=== PATIENT | male | born 1960 | race Asian ===

== ENCOUNTER 2017-03-28 08:56 | Emergency (ER) | payer BC ==
[2017-03-28 09:01] VITALS: BP 129/87; PULSE 75; TEMP 98; BMI 22.4
--- NOTE | 2017-03-28 09:51 | PDOC ---
History of Present Illness - General Chief Complaint: Pain Stated Complaint: RT KNEE PAIN Time Seen by Provider: 03/28/17 09:15 History Source: Patient Exam Limitations: No Limitations - History of Present Illness Initial Comments: 03/28/17 09:38 CHIEF COMPLAINT: Right knee pain for one year HISTORY OF PRESENT ILLNESS: Patient is a 57-year-old male, presented to [facility] department for evaluation of right knee pain states that recently knee has been getting more swollen has been having pain for over one year has not seen an orthopedist. Patient walking with a limp there is noted edema to right medial knee. No erythema, no warmth. No calf pain. REVIEW OF SYSTEMS: GENERAL: Afebrile, A&O x3 RESPIRATORY: No cough, wheezing, or hemoptysis. CARDIAC: No CP or SOB MUSCULOSKELETAL: Pain to right knee generalized SKIN : No erythema, edema to right medial knee, no bruising, no deformity. NEUROLOGICAL: Denies any numbness or tingling. PHYSICAL EXAM: GENERAL: The patient is awake, alert, and fully oriented, in no acute distress. RESPIRATORY: Lungs clear bilaterally no rhonchi, rales, or wheezes CARDIAC: S1-S2 audible, no murmur rub or gallop EXTREMITIES: Decreased range of motion to right knee related to pain, fluid appreciated to right medial knee suprapatellar bursa, no bulge sign. No pain to superior or inferior patella. Negative drop test. Negative posterior leg test. No joint laxity noted, no ecchymosis, no deformity, no abrasions ,no edema. + 3 popliteal pulse. Negative Homans sign. No calf pain or tenderness, no erythema or warmth there is edema to right medial knee. MUSCULOSKELETAL: No spinal point tenderness. SKIN: Warm, Dry, normal turgor, no erythema, no bruising or deformity. Past History - Past Medical History Allergies/Adverse Reactions: Allergies Allergy/AdvReac Type Severity Reaction Status Date / Time shellfish derived Allergy Verified 03/28/17 09:01 Home Medications: Ambulatory Orders Fioricet - 1 tab PO DAILY PRN 02/27/17 Ibuprofen [Motrin -] 400 mg PO QID #28 tablet 03/28/17 Oxycodone HCl/Acetaminophen [Percocet 5-325 mg Tablet] 1 tab PO Q6H #12 tablet MDD 4 07/25/17 - Psycho/Social/Smoking Cessation Hx Suicidal Ideation: No Smoking History: Never smoked Information on smoking cessation initiated: No Hx Alcohol Use: No Drug/Substance Use Hx: No Substance Use Type: None *Physical Exam - Vital Signs Last Vital Signs Temp Pulse Resp BP Pulse Ox 98 F 75 18 129/87 99 03/28/17 08:57 03/28/17 08:57 03/28/17 08:57 03/28/17 08:57 03/28/17 08:57 ED Treatment Course - RADIOLOGY Radiology Studies Ordered: Category Date Time Status KNEE 3 POS-RIGHT [RAD] Stat Radiology 03/28/17 09:20 Ordered Medical Decision Making - Medical Decision Making 03/28/17 09:57 A/P: Patient with right knee pain for one year, sent for x-ray to rule out acute injury patient denies any trauma to area. States that he has been having pain for a year and been progressively getting worse. X-ray demonstrated DJD. With mild fullness of the suprapatellar bursa suggesting effusion. Knee immobilizer placed on. Patient to follow-up with orthopedics. Medication for pain given to patient. *DC/Admit/Observation/Transfer Diagnosis at time of Disposition: Knee effusion, right DJD (degenerative joint disease) Qualifiers: Osteoarthritis location: knee Osteoarthritis type: unspecified Laterality: right Qualified Code(s): M17.11 - Unilateral primary osteoarthritis, right knee - Discharge Dispostion Admit: No - Prescriptions Prescriptions: Ibuprofen [Motrin -] 400 mg PO QID #28 tablet Oxycodone HCl/Acetaminophen [Percocet 5-325 mg Tablet] 1 tab PO Q6H #12 tablet MDD 4 - Referrals Referrals: Braydon Tuttle MD [Staff Physician] - - Patient Instructions Printed Discharge Instructions: DI for Knee Effusion Additional Instructions: 1. Please return to the emergency department with any redness, swelling, increased pain, or any other concerns. 2. Keep splint on only when walking, please take off when driving or when sleeping 3. Please follow up in the office of Dr. Tuttle within a week if pain persists. 4. No weightbearing 5. Ice and elevate when at rest. 6. Motrin for pain during the day, Percocet only at night may cause drowsiness and dizziness, do not drive and take Percocet
== END 2017-03-28 10:04 | disposition home or self-care (01) ==
LOC: JERFT 08:56
PROC: 2W3LX1Z Immobilization of Right Lower Extremity using Splint (ICD-10-PCS; principal; 2017-03-28)
DX: M17.11 Unilateral primary osteoarthritis, right knee (principal); M25.461 Effusion, right knee
CPT/HCPCS: 73562-TC-RT; 99281-25

== ENCOUNTER 2023-03-21 12:56 | Emergency (ER) | payer OTHER ==
[2023-03-21 13:10] VITALS: BP 119/75; PULSE 81; RESP 16; TEMP 98.5; BMI 38.0
[2023-03-21 14:45] LABS: BASO % 1.2 % (0-2.0); EOS % 1.7 % (0-4.5); HEMATOCRIT 43.4 % (35.4-49); LYMPH % 10.3 % (8-40); MCH 26.8 pg (25.7-33.7); MCHC 32.1 g/dl (32.0-35.9); MEAN CELL VOLUME 83.3 fl (80-96); MEAN PLT VOLUME 7.6 fl (7.5-11.1); MONO % 11.3 % (3.8-10.2); NEUT % 75.5 % (42.8-82.8); PLATELET COUNT 229 10^3/uL (134-434); RBC 5.21 M/mm3 (4.00-5.60); RDW 14.1 % (11.9-15.9); WHITE BLOOD COUNT 11.1 K/mm3 (4.0-10.0)
[2023-03-21] MEDS ORDERED: ACETAMINOPHEN 1000 MG/100 ML BAG IVPB ONE (14:55)
[2023-03-21] MEDS ORDERED: ACETAMINOPHEN INJECTION 100 ML IVPB ONE (14:58)
[2023-03-21 15:06] LABS: POTASSIUM 3.7 mmol/L (3.5-5.1)
[2023-03-21 15:09] LABS: BLOOD UREA NITROGEN 17.4 mg/dL (7-18); CALCIUM 8.8 mg/dL (8.5-10.1)
[2023-03-21 15:14] LABS: BILIRUBIN,TOTAL 1.4 mg/dL (0.2-1); TOT PROT 7.1 g/dl (6.4-8.2)
[2023-03-21 15:15] LABS: ANISOCYTOSIS 3+; MACROCYTOSIS 0
== END 2023-03-21 16:32 | disposition home or self-care (01) ==
LOC: JER 12:56
PROC: 3E033NZ Introduction of Analgesics, Hypnotics, Sedatives into Peripheral Vein, Percutaneous Approach (ICD-10-PCS; principal; 2023-03-21)
DX: M79.671 Pain in right foot (principal); M10.9 Gout, unspecified
CPT/HCPCS: 36415; 73630-TC-RT-FY; 80053; 85025; 99284-25

== ENCOUNTER 2024-03-13 04:29 | Day surgery (SDC) | payer OTHER ==
[2024-03-11 13:18] VITALS: BMI 22.6
[2024-03-13] MEDS ORDERED: CYCLOPENTOLATE HCL 1% OPHTH SOLN 2 ML BOTTLE ONE (07:20)
[2024-03-13] MEDS ORDERED: KETOROLAC TROMETHAMINE 0.5% EYE DROP 1 DROP DROPS ONE (07:20)
[2024-03-13] MEDS ORDERED: OFLOXACIN 0.3% OPHTHALMIC SOLUTION 5 ML BOTTLE ONE (07:20)
[2024-03-13] MEDS ORDERED: TROPICAMIDE 1% OPHTH SOLN 15 ML BOTTLE ONE (07:20)
[2024-03-13] MEDS ORDERED: PHENYLEPHRINE 2.5% OPTHALMIC DROP 2ML BOTTLE ONE (07:20)
[2024-03-13] MEDS ORDERED: LIDOCAINE HCL/PF 1% SDV 5ML VIAL ONE (07:24)
[2024-03-13] MEDS ORDERED: TETRACAINE 0.5% OPHTH SOLN 2 ML BOTTLE ONE (07:24)
[2024-03-13] MEDS ORDERED: EPINEPHrine/PF 1 MG/1 ML (1:1,000) AMPULE ONE (07:24)
[2024-03-13] MEDS ORDERED: POVIDONE-IODINE 5% OPHTHALMIC PREP 30 ML SOLUTION ONE (07:25)
[2024-03-13] MEDS ORDERED: BSS (NA/CA/MG/K) BALANCED SALT SOLUTION OPHTH SOLN 15 ML BOTTLE ONE (07:25)
[2024-03-13] MEDS ORDERED: ACETAMINOPHEN 325 MG TABLET (FP) PO PRN (07:38)
[2024-03-13] MEDS: KETOROLAC TROMETHAMINE 0.5% EYE DROP 1 DROP DROPS OP SCH (07:40)
[2024-03-13] MEDS: CYCLOPENTOLATE HCL 1% OPHTH SOLN 2 ML BOTTLE OP SCH (07:40)
[2024-03-13] MEDS: PHENYLEPHRINE 2.5% OPHTH SOLN 15 ML BOTTLE OP SCH (07:40)
[2024-03-13] MEDS: TROPICAMIDE 1% OPHTH SOLN 15 ML BOTTLE OP SCH (07:40)
[2024-03-13] MEDS: OFLOXACIN 0.3% OPHTHALMIC SOLUTION 5 ML BOTTLE OP SCH (07:40)
[2024-03-13] MEDS ORDERED: MIDAZOLAM HCL 2 MG/2 ML SINGLE DOSE VIAL ONE (09:03)
[2024-03-13] MEDS: TETRACAINE 0.5% OPHTH SOLN 2 ML BOTTLE TP ONE (09:09)
[2024-03-13] MEDS: POVIDONE-IODINE 5% OPHTHALMIC PREP 30 ML SOLUTION OS ONE (09:10)
[2024-03-13] MEDS: BSS (NA/CA/MG/K) BALANCED SALT SOLUTION OPHTH SOLN 15 ML BOTTLE OS ONE (09:18)
[2024-03-13] MEDS: LIDOCAINE HCL 1% PRESERVATIVE FREE - 30ML VIAL IO ONE (09:19)
[2024-03-13] MEDS: CHONDROITIN SU A/HYALUR SOD 1 KIT IO ONE (09:19)
[2024-03-13] MEDS: EPINEPHrine/PF 1 MG/1 ML (1:1,000) AMPULE SQ ONE (09:23)
[2024-03-13 10:47] VITALS: BP 145/86; PULSE 68; RESP 18; TEMP 97.9
== END 2024-03-13 10:57 | disposition home or self-care (01) ==
LOC: JASU-SURG 04:29
PROVIDERS: ATTEND Ophthalmology
PROC: 08RK3JZ Replacement of Left Lens with Synthetic Substitute, Percutaneous Approach (ICD-10-PCS; principal; 2024-03-13 09:00)
DX: H26.9 Unspecified cataract (principal)
CPT/HCPCS: V2632

== ENCOUNTER 2024-03-27 05:07 | Day surgery (SDC) | payer OTHER ==
[2024-03-25 13:46] VITALS: BMI 22.6
[~2024-03-27 05:07] MED LIST: ACETAMINOPHEN 325 MG TABLET (FP) PO PRN
[2024-03-27] MEDS ORDERED: LIDOCAINE HCL/PF 1% SDV 5ML VIAL ONE (07:30)
[2024-03-27] MEDS ORDERED: TETRACAINE 0.5% OPHTH SOLN 2 ML BOTTLE ONE (07:30)
[2024-03-27] MEDS ORDERED: BSS (NA/CA/MG/K) BALANCED SALT SOLUTION OPHTH SOLN 15 ML BOTTLE ONE (07:30)
[2024-03-27] MEDS ORDERED: POVIDONE-IODINE 5% OPHTHALMIC PREP 30 ML SOLUTION ONE (07:30)
[2024-03-27] MEDS ORDERED: TROPICAMIDE 1% OPHTH SOLN 15 ML BOTTLE ONE (09:23)
[2024-03-27] MEDS ORDERED: PHENYLEPHRINE 2.5% OPTHALMIC DROP 2ML BOTTLE ONE (09:23)
[2024-03-27] MEDS ORDERED: CYCLOPENTOLATE HCL 1% OPHTH SOLN 2 ML BOTTLE ONE (09:23)
[2024-03-27] MEDS ORDERED: KETOROLAC TROMETHAMINE 0.5% EYE DROP 1 DROP DROPS ONE (09:23)
[2024-03-27] MEDS ORDERED: OFLOXACIN 0.3% OPHTHALMIC SOLUTION 5 ML BOTTLE ONE (09:23)
[2024-03-27 10:01] VITALS: RESP 18
[2024-03-27] MEDS: CYCLOPENTOLATE HCL 1% OPHTH SOLN 2 ML BOTTLE OP SCH (10:14)
[2024-03-27] MEDS: PHENYLEPHRINE 2.5% OPHTH SOLN 15 ML BOTTLE OP SCH (10:15)
[2024-03-27] MEDS: TROPICAMIDE 1% OPHTH SOLN 15 ML BOTTLE OP SCH (10:15)
[2024-03-27] MEDS: KETOROLAC TROMETHAMINE 0.5% EYE DROP 1 DROP DROPS OP SCH (10:15)
[2024-03-27] MEDS: OFLOXACIN 0.3% OPHTHALMIC SOLUTION 5 ML BOTTLE OP SCH (10:15)
[2024-03-27] MEDS ORDERED: MIDAZOLAM HCL 2 MG/2 ML SINGLE DOSE VIAL ONE (12:09)
[2024-03-27] MEDS: TETRACAINE 0.5% OPHTH SOLN 2 ML BOTTLE OD ONE (12:21)
[2024-03-27] MEDS: POVIDONE-IODINE 5% OPHTHALMIC PREP 30 ML SOLUTION OD ONE (12:22)
[2024-03-27] MEDS: BSS (NA/CA/MG/K) BALANCED SALT SOLUTION OPHTH SOLN 15 ML BOTTLE OD ONE (12:28)
[2024-03-27] MEDS: LIDOCAINE HCL 1% PRESERVATIVE FREE - 30ML VIAL IO ONE (12:29)
[2024-03-27] MEDS: CHONDROITIN SU A/HYALUR SOD 1 KIT IO ONE (12:30)
[2024-03-27] MEDS: EPINEPHrine 1:1,000 1,000 MCG/ML ML SQ ONE (12:34)
[2024-03-27 14:14] VITALS: BP 149/84; PULSE 64; TEMP 97.8
== END 2024-03-27 13:51 | disposition home or self-care (01) ==
LOC: JASU-SURG 05:07
PROVIDERS: ATTEND Ophthalmology
PROC: 08RJ3JZ Replacement of Right Lens with Synthetic Substitute, Percutaneous Approach (ICD-10-PCS; principal; 2024-03-27 12:00)
DX: H26.9 Unspecified cataract (principal)
CPT/HCPCS: V2632

== ENCOUNTER 2024-04-16 11:47 | Emergency (ER) | payer OTHER ==
[2024-04-16 12:27] VITALS: BP 144/80; PULSE 71; RESP 18; TEMP 98.3; BMI 22.6
[2024-04-16] MEDS ORDERED: DIPHTH,PERTUSS(ACELL),TET 0.5 ML DISP.SYRIN IM ONE (13:24)
[2024-04-16] MEDS: TETANUS AND DIPHTHERIA TOXOID 0.5 ML DISP.SYRIN IM ONE (13:27)
[2024-04-16] MEDS: DIPHTH,PERTUSS(ACELL),TET 0.5 ML DISP.SYRIN IM ONE (13:27)
== END 2024-04-16 14:24 | disposition home or self-care (01) ==
LOC: JERFT 11:47
PROC: 0HQKXZZ Repair Right Lower Leg Skin, External Approach (ICD-10-PCS; principal; 2024-04-16)
PROC: 3E0234Z Introduction of Serum, Toxoid and Vaccine into Muscle, Percutaneous Approach (ICD-10-PCS; 2024-04-16)
DX: S81.811A Laceration without foreign body, right lower leg, initial encounter (principal); W23.1XXA Caught, crushed, jammed, or pinched between stationary objects, initial encounter; Z23 Encounter for immunization
CPT/HCPCS: 90471; 90715; 99282-25

== ENCOUNTER 2024-04-30 09:55 | Emergency (ER) | payer OTHER ==
[2024-04-30 09:58] VITALS: BP 125/74; PULSE 90; RESP 18; TEMP 97.7; BMI 22.6
== END 2024-04-30 10:45 | disposition home or self-care (01) ==
LOC: JERFT 09:55
PROC: 0HQKXZZ Repair Right Lower Leg Skin, External Approach (ICD-10-PCS; principal; 2024-04-30)
DX: S81.811D Laceration without foreign body, right lower leg, subsequent encounter (principal); Z48.02 Encounter for removal of sutures; X58.XXXD Exposure to other specified factors, subsequent encounter
CPT/HCPCS: 99283-25

== ENCOUNTER 2024-08-13 16:47 | Emergency (ER) | payer OTHER ==
[2024-08-13 16:54] VITALS: RESP 16; BMI 21.9
[2024-08-13 18:32] LABS: BASO % 0.3 % (0-2.0); EOS % 1.1 % (0-4.5); HEMATOCRIT 43.9 % (35.4-49); HEMOGLOBIN 14.1 GM/dL (11.7-16.9); LYMPH % 7.5 % (8-40); MCH 27.8 pg (25.7-33.7); MCHC 32.2 g/dl (32.0-35.9); MEAN CELL VOLUME 86.4 fl (80-96); MEAN PLT VOLUME 7.3 fl (7.5-11.1); MONO % 9.4 % (3.8-10.2); NEUT % 81.7 % (42.8-82.8); PLATELET COUNT 236 10^3/uL (134-434); RBC 5.08 M/mm3 (4.00-5.60); RDW 13.3 % (11.9-15.9); WHITE BLOOD COUNT 13.1 K/mm3 (4.0-10.0)
[2024-08-13 18:45] LABS: INR 0.99 (0.83-1.09); PROTHROMBIN TIME (PATIENT) 11.4 SEC (9.7-13.0)
[2024-08-13 18:48] LABS: ACTIVATED PTT 30.5 SECONDS (25.2-36.5)
[2024-08-13 18:55] LABS: CALCIUM 8.9 mg/dL (8.5-10.1); POTASSIUM 3.4 mmol/L (3.5-5.1)
[2024-08-13 18:56] LABS: ALBUMIN 3.1 g/dl (3.4-5.0)
[2024-08-13 18:59] LABS: CREATININE 1.1 mg/dL (0.55-1.3)
[2024-08-13 19:02] LABS: BILIRUBIN,TOTAL 0.6 mg/dL (0.2-1); TOT PROT 7.6 g/dl (6.4-8.2)
[2024-08-13 22:24] VITALS: BP 149/95; PULSE 71
[2024-08-13 22:25] VITALS: TEMP 36.8
== END 2024-08-13 22:42 | disposition short-term general hospital (02) ==
LOC: JER 16:47
DX: L76.82 Other postprocedural complications of skin and subcutaneous tissue (principal); Z20.822 Contact with and (suspected) exposure to COVID-19
CPT/HCPCS: 0241U-QW; 36415; 73140-TC-LT-FY; 80053; 85025; 85610; 85651; 85730; 86140; 86850; 86900; 86901; 99285-25

== ENCOUNTER 2025-01-07 18:28 | Inpatient (IN) | payer OTHER ==
[2025-01-07 20:38] LABS: HEMOGLOBIN 12.4 g/dL (13.7-17.5); MEAN PLT VOLUME 10.6 fl (9.4-12.4)
[2025-01-07 20:40] LABS: ABSOLUTE IMMATURE GRANULOCYTES 0.46 x10^3/uL (0.0-0.031); BASOPHILS # 0.03 x10^3/uL (0.01-0.08); HEMATOCRIT 38.1 % (40.1-51.0); MCHC 32.5 g/dl (32.3-36.5); MEAN CELL VOLUME 83.2 fl (79.0-92.2); MONOCYTE # 1.41 x10^3/uL (0.30-0.82); MONOCYTE % 7.5 % (5.3-12.2); PLATELET COUNT 128 x10^3/uL (163-337); RDW 13.8 % (12.2-16.4)
[2025-01-07 20:48] LABS: INR 1.14 (0.83-1.09); PROTHROMBIN TIME (PATIENT) 12.5 SEC (9.7-13.0)
[2025-01-07 20:50] LABS: ACTIVATED PTT 24.3 SECONDS (25.2-36.5)
[2025-01-07 20:56] LABS: POTASSIUM 4.3 mmol/L (3.5-5.1)
[2025-01-07 20:58] LABS: CALCIUM 8.5 mg/dL (8.5-10.1)
[2025-01-07 20:59] LABS: ALBUMIN 2.7 g/dl (3.4-5.0); BLOOD UREA NITROGEN 41.6 mg/dL (7-18)
[2025-01-07 21:02] LABS: CREATININE 1.3 mg/dL (0.55-1.3)
[2025-01-07 21:04] LABS: BILIRUBIN,TOTAL 0.8 mg/dL (0.2-1); TOT PROT 5.7 g/dl (6.4-8.2)
[2025-01-07 21:07] LABS: N-TERMINAL BNP 354.6 pg/ml (5-125)
[2025-01-07] MEDS ORDERED: CEFAZOLIN 1 GM/D5W 1 GM/50 ML BAG ONE ×2 (21:50→21:59)
[2025-01-07] MEDS ORDERED: FUROSEMIDE 40 MG/4 ML INJECTABLE VIAL ONE (21:51)
[2025-01-07] MEDS: FUROSEMIDE 40 MG/4 ML INJECTABLE VIAL IVPUSH ONE (21:55)
[2025-01-07] MEDS: CEFAZOLIN 1 GM in DEXTROSE 5%-WATER - 50 ML IVPB ONE ×2 (21:55→21:58)
[2025-01-07 21:59] LABS: URINE APPEARANCE CLEAR; URINE BILIRUBIN NEGATIVE (NEGATIVE); URINE COLOR YELLOW; URINE GLUCOSE (UA) NEGATIVE (NEGATIVE); URINE KETONE NEGATIVE (NEGATIVE); URINE LEUK ESTERASE NEGATIVE (NEGATIVE); URINE NITRITE NEGATIVE (NEGATIVE); URINE PROTEIN NEGATIVE (NEGATIVE); URINE UROBILINOGEN 0.2 mg/dL (0.2-1.0)
[2025-01-08 02:09] VITALS: BMI 23.7
[2025-01-08] MEDS: INSULIN ASPART SLIDING SCALE (NOVOLOG) 1 VIAL SQ SCH (06:00)
[2025-01-08 06:32] LABS: ABSOLUTE IMMATURE GRANULOCYTES 0.44 x10^3/uL (0.0-0.031); BASOPHILS # 0.05 x10^3/uL (0.01-0.08); MONOCYTE % 7.9 % (5.3-12.2)
[2025-01-08 06:34] LABS: EOSINOPHIL % 0.1 % (0.8-7.0); EOSINOPHILS # 0.01 x10^3/uL (0.04-0.54); HEMATOCRIT 41.4 % (40.1-51.0); HEMOGLOBIN 13.4 g/dL (13.7-17.5); MCHC 32.4 g/dl (32.3-36.5); MEAN CELL VOLUME 83.3 fl (79.0-92.2); MEAN PLT VOLUME 10.9 fl (9.4-12.4); MONOCYTE # 1.36 x10^3/uL (0.30-0.82); PLATELET COUNT 121 x10^3/uL (163-337); RDW 13.9 % (12.2-16.4)
[2025-01-08 06:57] LABS: POTASSIUM 3.9 mmol/L (3.5-5.1)
[2025-01-08 06:58] LABS: CALCIUM 8.7 mg/dL (8.5-10.1)
[2025-01-08 06:59] LABS: BLOOD UREA NITROGEN 40.9 mg/dL (7-18)
[2025-01-08 07:02] LABS: CREATININE 1.1 mg/dL (0.55-1.3)
[2025-01-08] MEDS: FUROSEMIDE 40 MG/4 ML INJECTABLE VIAL IVPUSH SCH (09:12)
[2025-01-08] MEDS: CEFAZOLIN 1 GM in DEXTROSE 5%-WATER - 50 ML IVPB SCH (09:12)
[2025-01-08] MEDS: ATORVASTATIN CA 10 MG TABLET (FP) PO SCH (21:09)
[2025-01-09 06:58] LABS: ABSOLUTE IMMATURE GRANULOCYTES 0.68 x10^3/uL (0.0-0.031); BASOPHILS # 0.08 x10^3/uL (0.01-0.08); EOSINOPHIL % 0.4 % (0.8-7.0); EOSINOPHILS # 0.06 x10^3/uL (0.04-0.54); HEMATOCRIT 40.9 % (40.1-51.0); HEMOGLOBIN 13.4 g/dL (13.7-17.5); MCHC 32.8 g/dl (32.3-36.5); MEAN CELL VOLUME 82.6 fl (79.0-92.2); MONOCYTE # 1.37 x10^3/uL (0.30-0.82); PLATELET COUNT 124 x10^3/uL (163-337); RDW 13.5 % (12.2-16.4)
[2025-01-09 07:25] LABS: CALCIUM 8.4 mg/dL (8.5-10.1)
[2025-01-09 07:26] LABS: ALBUMIN 2.5 g/dl (3.4-5.0)
[2025-01-09 07:29] LABS: CREATININE 1.2 mg/dL (0.55-1.3)
[2025-01-09 07:30] LABS: BILIRUBIN,TOTAL 0.8 mg/dL (0.2-1); TOT PROT 5.3 g/dl (6.4-8.2)
[2025-01-09] MEDS: ENOXAPARIN NA (PORCINE) 40 MG/0.4 ML DISP.SYRIN SQ SCH (09:08)
[2025-01-09] MEDS: METOPROLOL TARTRATE 25 MG TABLET (FP) PO SCH (21:49)
[2025-01-10 09:25] VITALS: BP 132/82; RESP 19
[2025-01-10 10:16] VITALS: PULSE 74; TEMP 97.4
[2025-01-10] MEDS: FUROSEMIDE 40 MG TABLET (FP) PO SCH (10:44)
== END 2025-01-10 12:30 | disposition home or self-care (01) | DRG 603 ==
LOC: JER 18:28 → JERBED 22:14 → J2W 01-08 00:39
PROVIDERS: ADMIT Internal Medicine; ATTEND Internal Medicine
DX: L03.115 Cellulitis of right lower limb (principal); E78.00 Pure hypercholesterolemia, unspecified; I10 Essential (primary) hypertension
CPT/HCPCS: 0241U-QW; 36415; 71045-TC-FY; 80048; 80053; 81003; 82533; 82962; 83036; 83880; 84484; 85025; 85610; 85730; 86200; 86431; 87040; 87081; 87086; 87522; 93005; 93010; 93306-TC; 93970-TC; 99285-25

== ENCOUNTER 2025-01-14 14:18 | Inpatient (IN) | payer OTHER ==
[2025-01-14 14:25] VITALS: BMI 23.3
[2025-01-14] MEDS ORDERED: VANCOMYCIN 1 GM PREMIX (F) 1,000 MG/200 ML BAG IVPB ONE (16:25)
[2025-01-14] MEDS ORDERED: PIPERACILLIN/TAZOB 4.5 GM 4.5 GM/100 ML BAG IVPB ONE (16:39)
[2025-01-14] MEDS: PIPERACILLIN/TAZOB 4.5 GM 4.5 GM in DEXTROSE 5%-WATER - 100 ML IVPB ONE (16:50)
[2025-01-14 17:15] LABS: HEMATOCRIT 43.4 % (40.1-51.0); HEMOGLOBIN 13.9 g/dL (13.7-17.5); MEAN CELL VOLUME 83.8 fl (79.0-92.2); PLATELET COUNT 155 x10^3/uL (163-337); RDW 13.2 % (12.2-16.4)
[2025-01-14 17:40] LABS: POTASSIUM 4.5 mmol/L (3.5-5.1)
[2025-01-14 17:42] LABS: CALCIUM 8.6 mg/dL (8.5-10.1)
[2025-01-14 17:43] LABS: ALBUMIN 2.8 g/dl (3.4-5.0); BLOOD UREA NITROGEN 22.9 mg/dL (7-18); MAGNESIUM 2.1 mg/dL (1.8-2.4)
[2025-01-14 17:46] LABS: CREATININE 1.6 mg/dL (0.55-1.3)
[2025-01-14 17:48] LABS: BILIRUBIN,TOTAL 1.7 mg/dL (0.2-1); TOT PROT 6.2 g/dl (6.4-8.2)
[2025-01-14 17:51] LABS: N-TERMINAL BNP 117.6 pg/ml (5-125)
[2025-01-14] MEDS: ACETAMINOPHEN 325 MG TABLET (FP) PO ONE (18:01)
[2025-01-14 18:05] LABS: INR 1.14 (0.83-1.09); PROTHROMBIN TIME (PATIENT) 12.4 SEC (9.7-13.0)
[2025-01-14 18:06] LABS: ACTIVATED PTT 31.6 SECONDS (25.2-36.5)
[2025-01-14] MEDS: VANCOMYCIN/WATER FOR INJ (PEG) 1,000 MG/200 ML BAG IVPB ONE (18:49)
[2025-01-14 19:47] LABS: ERYTHROCYTE SEDIMENTATION RATE 52 mm/hr (0-20)
[2025-01-15] MEDS: ACETAMINOPHEN 1000 MG/100 ML BAG IVPB ONE ×2 (06:39→22:21)
[2025-01-15] MEDS: PIPERACILLIN/TAZOB 4.5 GM 4.5 GM/100 ML BAG IVPB SCH (12:18)
[2025-01-15] MEDS: METOPROLOL TARTRATE 25 MG TABLET (FP) PO SCH (21:36)
[2025-01-15] MEDS: ATORVASTATIN CA 10 MG TABLET (FP) PO SCH (21:37)
[2025-01-15] MEDS: HEPARIN NA (PORCINE) 5,000 UNITS/ML 1ML VIAL SQ SCH (21:37)
[2025-01-16 09:04] LABS: ABSOLUTE IMMATURE GRANULOCYTES 0.45 x10^3/uL (0.0-0.031); BASOPHILS # 0.05 x10^3/uL (0.01-0.08); EOSINOPHIL % 2.9 % (0.8-7.0); EOSINOPHILS # 0.32 x10^3/uL (0.04-0.54); HEMATOCRIT 38.5 % (40.1-51.0); HEMOGLOBIN 12.2 g/dL (13.7-17.5); MCHC 31.7 g/dl (32.3-36.5); MEAN CELL VOLUME 84.2 fl (79.0-92.2); MEAN PLT VOLUME 10.9 fl (9.4-12.4); MONOCYTE # 1.18 x10^3/uL (0.30-0.82); MONOCYTE % 10.6 % (5.3-12.2); PLATELET COUNT 153 x10^3/uL (163-337)
[2025-01-16 09:23] LABS: POTASSIUM 3.5 mmol/L (3.5-5.1)
[2025-01-16 09:27] LABS: ALBUMIN 2.4 g/dl (3.4-5.0); CALCIUM 8.8 mg/dL (8.5-10.1)
[2025-01-16 09:28] LABS: BLOOD UREA NITROGEN 18.7 mg/dL (7-18)
[2025-01-16 09:33] LABS: CREATININE 1.7 mg/dL (0.55-1.3)
[2025-01-16 09:34] LABS: BILIRUBIN,TOTAL 1.8 mg/dL (0.2-1); TOT PROT 5.6 g/dl (6.4-8.2)
[2025-01-16] MEDS: LIDOCAINE 5% TOPICAL PATCH TP SCH (12:03)
[2025-01-16] MEDS: ACETAMINOPHEN 1000 MG/100 ML BAG IVPB PRN (15:09)
[2025-01-16] MEDS: VANCOMYCIN 1 GM PREMIX (F) 1 GM/200 ML BAG IVPB SCH (16:08)
[2025-01-16] MEDS: PIPERACILLIN/TAZOB 3.375 GM 50 ML IVPB SCH (18:34)
[2025-01-16] MEDS: METOPROLOL TARTRATE 25 MG TABLET (FP) PO SCH (21:05)
[2025-01-16] MEDS: LIDOCAINE PATCH REMOVAL MC SCH (21:06)
[2025-01-16 23:21] LABS: POTASSIUM 3.4 mmol/L (3.5-5.1)
[2025-01-16 23:23] LABS: ALBUMIN 2.2 g/dl (3.4-5.0)
[2025-01-16 23:24] LABS: BLOOD UREA NITROGEN 22.6 mg/dL (7-18)
[2025-01-16 23:27] LABS: CREATININE 1.7 mg/dL (0.55-1.3)
[2025-01-16 23:28] LABS: TOT PROT 5.2 g/dl (6.4-8.2)
[2025-01-17] MEDS: VANCOMYCIN/WATER FOR INJ (PEG) 1 GM/200 ML BAG IVPB SCH (02:20)
[2025-01-17 10:00] LABS: HEMATOCRIT 34.4 % (40.1-51.0); HEMOGLOBIN 10.9 g/dL (13.7-17.5); MCHC 31.7 g/dl (32.3-36.5); MEAN CELL VOLUME 83.9 fl (79.0-92.2); PLATELET COUNT 168 x10^3/uL (163-337); RDW 12.9 % (12.2-16.4)
[2025-01-17] MEDS: ACETAMINOPHEN 500 MG TABLET (FP) PO PRN (18:29)
[2025-01-18] MEDS: ACETAMINOPHEN 1000 MG/100 ML BAG IVPB PRN (00:34)
[2025-01-18 08:45] LABS: ABSOLUTE IMMATURE GRANULOCYTES 0.37 x10^3/uL (0.0-0.031); BASOPHILS # 0.06 x10^3/uL (0.01-0.08); EOSINOPHIL % 3.8 % (0.8-7.0); EOSINOPHILS # 0.34 x10^3/uL (0.04-0.54); HEMATOCRIT 35.5 % (40.1-51.0); HEMOGLOBIN 11.3 g/dL (13.7-17.5); MCHC 31.8 g/dl (32.3-36.5); MEAN CELL VOLUME 83.9 fl (79.0-92.2); MEAN PLT VOLUME 10.6 fl (9.4-12.4); MONOCYTE # 0.81 x10^3/uL (0.30-0.82); PLATELET COUNT 182 x10^3/uL (163-337); RDW 13.1 % (12.2-16.4)
[2025-01-18 09:04] LABS: POTASSIUM 3.7 mmol/L (3.5-5.1)
[2025-01-18 09:07] LABS: ALBUMIN 2.1 g/dl (3.4-5.0); BLOOD UREA NITROGEN 10.3 mg/dL (7-18); CALCIUM 8.6 mg/dL (8.5-10.1)
[2025-01-18 09:11] LABS: CREATININE 1.3 mg/dL (0.55-1.3)
[2025-01-18 09:12] LABS: TOT PROT 5.4 g/dl (6.4-8.2)
[2025-01-18 09:35] LABS: ERYTHROCYTE SEDIMENTATION RATE 80 mm/hr (0-20)
[2025-01-18] MEDS: PIPERACILLIN/TAZOB 4.5 GM 4.5 GM in DEXTROSE 5%-WATER 100 ML IVPB SCH (19:27)
[2025-01-19] MEDS: METOPROLOL TARTRATE 25 MG TABLET (FP) PO SCH (09:42)
[2025-01-19] MEDS: traMADol HCL 50 MG TABLET PO PRN (09:53)
[2025-01-19 14:09] LABS: POTASSIUM 3.4 mmol/L (3.5-5.1)
[2025-01-19 14:11] LABS: ALBUMIN 2.1 g/dl (3.4-5.0); BLOOD UREA NITROGEN 10.2 mg/dL (7-18); CALCIUM 8.5 mg/dL (8.5-10.1)
[2025-01-19 14:15] LABS: CREATININE 1.1 mg/dL (0.55-1.3)
[2025-01-19 14:16] LABS: TOT PROT 5.6 g/dl (6.4-8.2)
[2025-01-19] MEDS: POTASSIUM CHLORIDE TABS 20 MEQ TABLET.ER (FP) PO ONE (16:16)
[2025-01-19] MEDS: VANCOMYCIN/WATER FOR INJ (PEG) 1,000 MG/200 ML BAG IVPB SCH (20:25)
[2025-01-20 09:10] LABS: ABSOLUTE IMMATURE GRANULOCYTES 0.42 x10^3/uL (0.0-0.031); BASOPHILS # 0.07 x10^3/uL (0.01-0.08); EOSINOPHIL % 4.8 % (0.8-7.0); EOSINOPHILS # 0.43 x10^3/uL (0.04-0.54); HEMATOCRIT 32.9 % (40.1-51.0); HEMOGLOBIN 10.6 g/dL (13.7-17.5); MCHC 32.2 g/dl (32.3-36.5); MEAN CELL VOLUME 83.3 fl (79.0-92.2); MONOCYTE # 0.89 x10^3/uL (0.30-0.82); PLATELET COUNT 254 x10^3/uL (163-337)
[2025-01-20 09:32] LABS: POTASSIUM 3.7 mmol/L (3.5-5.1)
[2025-01-20 10:00] LABS: ALBUMIN 2.1 g/dl (3.4-5.0); BLOOD UREA NITROGEN 7.5 mg/dL (7-18); CALCIUM 8.5 mg/dL (8.5-10.1)
[2025-01-20 10:04] LABS: BILIRUBIN,TOTAL 1.1 mg/dL (0.2-1); TOT PROT 5.6 g/dl (6.4-8.2)
[2025-01-21] MEDS: PIPERACILLIN/TAZOB 3.375 GM 3.375 GM in DEXTROSE 5%-WATER - 50 ML IVPB SCH (17:16)
[2025-01-22 13:50] VITALS: RESP 18
[2025-01-24 15:16] VITALS: BP 112/90; PULSE 88; TEMP 97.9
== END 2025-01-24 15:24 | disposition home or self-care (01) | DRG 603 ==
LOC: JER 14:18 → UNDOADMOB 15:46 → JERBED 15:46 → INTOOBSV 15:46 → JERBED 16:24 → J5S 17:13 → OBSVTOIN 01-17 10:00
PROVIDERS: ADMIT Internal Medicine; ATTEND Internal Medicine
PROC: 0Y9H3ZX Drainage of Right Lower Leg, Percutaneous Approach, Diagnostic (ICD-10-PCS; principal; 2025-01-22)
DX: L03.115 Cellulitis of right lower limb (principal); S80.11XA Contusion of right lower leg, initial encounter; I11.0 Hypertensive heart disease with heart failure; M06.9 Rheumatoid arthritis, unspecified; R22.41 Localized swelling, mass and lump, right lower limb; I50.9 Heart failure, unspecified; E78.5 Hyperlipidemia, unspecified; X58.XXXA Exposure to other specified factors, initial encounter; Y93.9 Activity, unspecified; Y92.89 Other specified places as the place of occurrence of the external cause; Y99.9 Unspecified external cause status
CPT/HCPCS: 10030; 36415; 73130-TC-LT-FY; 73130-TC-RT-FY; 73718-TC-RT; 80053; 83735; 83880; 85025; 85027; 85610; 85651; 85730; 86140; 86850; 86900; 86901; 87040; 87070; 87075; 87102; 87116; 87186; 87205; 87206; 87210; 88108; 88305-TC; 93005; 93010; 93971-TC; 99285-25; G0378; G0480; J0131; J1644

== ENCOUNTER 2025-02-06 10:36 | Inpatient (IN) | payer OTHER ==
[2025-02-06] MEDS ORDERED: VANCOMYCIN 1 GM PREMIX (F) 1 GM/200 ML BAG ONE (11:01)
[2025-02-06] MEDS: SODIUM CHLORIDE 0.9% 500 ML INFUS.BAG IV ONE (11:15)
[2025-02-06 11:30] LABS: MCHC 33.1 g/dl (32.3-36.5); MEAN CELL VOLUME 77.4 fl (79.0-92.2); MEAN PLT VOLUME 9.2 fl (9.4-12.4); RDW 15.2 % (12.2-16.4)
[2025-02-06 11:40] LABS: INR 1.37 (0.83-1.09); PROTHROMBIN TIME (PATIENT) 15.1 SEC (9.7-13.0)
[2025-02-06 11:43] LABS: ACTIVATED PTT 32.1 SECONDS (25.2-36.5)
[2025-02-06 11:45] LABS: BG HCT 31.0 % (35.4-49); VENOUS BASE EXCESS -4.4 mmol/L (-2-2); VENOUS O2 SATURATION 75.0 % (70-80); VENOUS PCO2 34.3 mmHg (38-52); VENOUS PH 7.383 (7.310-7.410)
[2025-02-06 11:52] LABS: CO2 21.0 mmol/L (21-32); GLUCOSE,RANDOM 95.0 mg/dL (74-106)
[2025-02-06] MEDS ORDERED: PIPERACILLIN/TAZOB 4.5 GM 4.5 GM/100 ML BAG IVPB ONE (11:52)
[2025-02-06 11:55] LABS: CREATININE 3.2 mg/dL (0.55-1.3); SGOT/AST 65.0 U/L (15-37); SGPT/ALT 51.0 U/L (13-61)
[2025-02-06 11:56] LABS: TOT PROT 6.9 g/dl (6.4-8.2)
[2025-02-06] MEDS: PIPERACILLIN/TAZOBACTAM 4.5 GM VIAL IVPB ONE (11:56)
[2025-02-06 11:58] LABS: ALK PHOS 102.0 U/L (45-117)
[2025-02-06 12:19] LABS: URINE APPEARANCE CLOUDY; URINE BILIRUBIN NEGATIVE (NEGATIVE); URINE COLOR DK YELLOW; URINE GLUCOSE (UA) NEGATIVE (NEGATIVE); URINE KETONE NEGATIVE (NEGATIVE); URINE LEUK ESTERASE NEGATIVE (NEGATIVE); URINE NITRITE NEGATIVE (NEGATIVE); URINE PROTEIN TRACE (NEGATIVE); URINE UROBILINOGEN 1.0 mg/dL (0.2-1.0)
[2025-02-06] MEDS: SODIUM CHLORIDE 0.9% 1000 ML INFUS.BAG IV ONE ×2 (12:44→14:40)
[2025-02-06] MEDS ORDERED: ACETAMINOPHEN INJECTION 100 ML ONE (14:01)
[2025-02-06] MEDS: ACETAMINOPHEN 1000 MG/100 ML BAG IVPB ONE ×3 (14:12→21:13)
[2025-02-06] MEDS: SODIUM CHLORIDE 1,000 ML IV SCH (17:27)
[2025-02-06] MEDS: SODIUM CHLORIDE 250 ML IV STA (21:13)
[2025-02-07] MEDS: PIPERACILLIN/TAZOB 2.25 GM 2.25 GM in DEXTROSE 5%-WATER - 50 ML IVPB SCH (01:18)
[2025-02-07] MEDS ORDERED: PIPERACILLIN/TAZOB 2.25 GM 2.25 GM in DEXTROSE 5%-WATER - 50 ML IVPB SCH (02:00)
[2025-02-07] MEDS: ACETAMINOPHEN 325 MG TABLET (FP) PO PRN (07:55)
[2025-02-07 08:06] LABS: MCHC 31.7 g/dl (32.3-36.5); MEAN CELL VOLUME 79.6 fl (79.0-92.2); MEAN PLT VOLUME 9.2 fl (9.4-12.4); RDW 15.4 % (12.2-16.4)
[2025-02-07 08:44] LABS: CO2 17.0 mmol/L (21-32)
[2025-02-07 08:45] LABS: GLUCOSE,RANDOM 72.0 mg/dL (74-106)
[2025-02-07 08:47] LABS: SGPT/ALT 38.0 U/L (13-61)
[2025-02-07 08:48] LABS: CREATININE 2.5 mg/dL (0.55-1.3); SGOT/AST 45.0 U/L (15-37)
[2025-02-07 08:49] LABS: TOT PROT 6.2 g/dl (6.4-8.2)
[2025-02-07 08:50] LABS: ALK PHOS 89.0 U/L (45-117)
[2025-02-07] MEDS ORDERED: DOCUSATE SODIUM 100 MG CAPSULE (FP) PO PRN (12:17)
[2025-02-07] MEDS: DEXTROSE 5%-WATER - 1,000 ML IV SCH (17:36)
[2025-02-08] MEDS: SODIUM CHLORIDE 0.45% 1,000 ML IV SCH (06:10)
[2025-02-08 10:50] LABS: MCHC 32.1 g/dl (32.3-36.5); MEAN CELL VOLUME 79.3 fl (79.0-92.2); MEAN PLT VOLUME 8.9 fl (9.4-12.4); RDW 15.5 % (12.2-16.4)
[2025-02-08 11:15] LABS: GLUCOSE,RANDOM 122.0 mg/dL (74-106)
[2025-02-08 11:16] LABS: CO2 20.0 mmol/L (21-32)
[2025-02-08 11:19] LABS: CREATININE 2.0 mg/dL (0.55-1.3); SGOT/AST 33.0 U/L (15-37); SGPT/ALT 30.0 U/L (13-61)
[2025-02-08 11:20] LABS: TOT PROT 6.1 g/dl (6.4-8.2)
[2025-02-08 11:22] LABS: ALK PHOS 79.0 U/L (45-117)
[2025-02-08 13:38] LABS: IRON SERUM 21.0 ug/dL (50-175)
[2025-02-08] MEDS: AMINO ACIDS/PROTEIN HYDROLYS 30 ML LIQUID.PKT PO SCH (17:30)
[2025-02-08] MEDS: PIPERACILLIN/TAZOB 2.25 GM 2.25 GM/50 ML BAG IVPB SCH (17:30)
[2025-02-09 07:58] LABS: MCHC 31.6 g/dl (32.3-36.5); MEAN CELL VOLUME 79.8 fl (79.0-92.2); MEAN PLT VOLUME 9.0 fl (9.4-12.4); RDW 15.7 % (12.2-16.4)
[2025-02-09 08:19] LABS: CO2 17.0 mmol/L (21-32); GLUCOSE,RANDOM 87.0 mg/dL (74-106)
[2025-02-09 08:22] LABS: CREATININE 1.6 mg/dL (0.55-1.3); SGOT/AST 33.0 U/L (15-37); SGPT/ALT 26.0 U/L (13-61)
[2025-02-09 08:24] LABS: TOT PROT 6.0 g/dl (6.4-8.2)
[2025-02-09 08:25] LABS: ALK PHOS 75.0 U/L (45-117)
[2025-02-09] MEDS: IRON SUCROSE INJECTION 200 MG in SODIUM CHLORIDE 100 ML IVPB ONE (13:13)
[2025-02-09] MEDS: MINERAL OIL/PET HY-PHL TOPICAL OINTMENT 454 GM JAR TP SCH (13:14)
[2025-02-09 14:19] LABS: HEPATITIS B SURF AG NON-MATERN NON-REACTIVE (NONREACTIVE)
[2025-02-09 14:53] LABS: HCV DIAGNOSTIC IN-HOUSE W/RFLX REACTIVE (NONREACTIVE)
[2025-02-09 19:25] LABS: MCHC 32.5 g/dl (32.3-36.5); MEAN CELL VOLUME 79.5 fl (79.0-92.2); MEAN PLT VOLUME 9.5 fl (9.4-12.4); RDW 15.9 % (12.2-16.4)
[2025-02-09] MEDS ORDERED: SODIUM CHLORIDE 1,000 ML IV STA (20:03)
[2025-02-09 21:34] LABS: MCHC 33.1 g/dl (32.3-36.5); MEAN CELL VOLUME 79.2 fl (79.0-92.2); MEAN PLT VOLUME 9.2 fl (9.4-12.4); RDW 15.9 % (12.2-16.4)
[2025-02-09 21:43] LABS: MCHC 32.7 g/dl (32.3-36.5); MEAN CELL VOLUME 78.6 fl (79.0-92.2); MEAN PLT VOLUME 8.9 fl (9.4-12.4); RDW 15.9 % (12.2-16.4)
[2025-02-09] MEDS: CHLORHEXIDINE GLUCONATE 4% CLEANSER FOR DECOLONIZATION TP SCH (22:00)
[2025-02-09] MEDS ORDERED: CHLORHEXIDINE GLUCONATE 4% CLEANSER FOR DECOLONIZATION TP SCH (22:00)
[2025-02-09] MEDS: PANTOPRAZOLE SODIUM 40 MG VIAL IVPUSH SCH (22:02)
[2025-02-09 22:17] LABS: CO2 20.0 mmol/L (21-32); GLUCOSE,RANDOM 139.0 mg/dL (74-106)
[2025-02-09 22:20] LABS: CREATININE 1.7 mg/dL (0.55-1.3)
[2025-02-09] MEDS: MUPIROCIN 2% TOPICAL OINTMENT FOR DECOLONIZATION NS SCH (22:25)
[2025-02-09] MEDS: LACTATED RINGERS SOLUTION 1,000 ML/1,000 ML INFUS.BAG IV SCH (22:28)
[2025-02-09] MEDS: CALCIUM GLUC IN NACL, ISO-OSM 1 GM/50 ML BAG IVPB ONE (23:53)
[2025-02-10] MEDS ORDERED: VANCOMYCIN 1 GM PREMIX (F) 1 GM/200 ML BAG ONE (01:36)
[2025-02-10] MEDS ORDERED: DOCUSATE SODIUM 100 MG CAPSULE (FP) PO PRN (01:36)
[2025-02-10 01:41] LABS: MCHC 33.1 g/dl (32.3-36.5); MEAN CELL VOLUME 81.7 fl (79.0-92.2); MEAN PLT VOLUME 9.2 fl (9.4-12.4); RDW 15.2 % (12.2-16.4)
[2025-02-10] MEDS: SODIUM CHLORIDE 1,000 ML IV STA (02:31)
[2025-02-10] MEDS: PIPERACILLIN/TAZOB 2.25 GM 2.25 GM/50 ML BAG IVPB SCH (03:58)
[2025-02-10] MEDS: ACETAMINOPHEN 1000 MG/100 ML BAG IVPB ONE (06:57)
[2025-02-10 07:47] LABS: MCHC 33.2 g/dl (32.3-36.5); MEAN CELL VOLUME 81.1 fl (79.0-92.2); MEAN PLT VOLUME 9.6 fl (9.4-12.4); RDW 14.9 % (12.2-16.4)
[2025-02-10 08:10] LABS: CO2 19.0 mmol/L (21-32); GLUCOSE,RANDOM 86.0 mg/dL (74-106)
[2025-02-10 08:13] LABS: CREATININE 1.3 mg/dL (0.55-1.3); SGOT/AST 36.0 U/L (15-37); SGPT/ALT 21.0 U/L (13-61)
[2025-02-10 08:15] LABS: TOT PROT 5.6 g/dl (6.4-8.2)
[2025-02-10 08:16] LABS: ALK PHOS 68.0 U/L (45-117)
[2025-02-10 08:18] LABS: ACTIVATED PTT 34.4 SECONDS (25.2-36.5); INR 1.34 (0.83-1.09); PROTHROMBIN TIME (PATIENT) 14.7 SEC (9.7-13.0)
[2025-02-10] MEDS: AMINO ACIDS/PROTEIN HYDROLYS 30 ML LIQUID.PKT PO SCH (08:26)
[2025-02-10] MEDS: PANTOPRAZOLE SODIUM 40 MG VIAL IVPUSH SCH (09:06)
[2025-02-10] MEDS: PHYTONADIONE 10 MG/1 ML AMP IVPB ONE (09:06)
[2025-02-10] MEDS: MAGNESIUM SULFATE IN WATER 2 GM/50 ML IVPB IVPB ONE (09:07)
[2025-02-10] MEDS: MUPIROCIN 2% TOPICAL OINTMENT FOR DECOLONIZATION NS SCH (09:08)
[2025-02-10 09:57] LABS: ERYTHROCYTE SEDIMENTATION RATE 30 mm/hr (0-20)
[2025-02-10] MEDS: MINERAL OIL/PET HY-PHL TOPICAL OINTMENT 454 GM JAR TP SCH (11:40)
[2025-02-10] MEDS: DEXTROSE 5%-LACTATED RINGERS 1,000 ML IV SCH (11:41)
[2025-02-10 13:52] LABS: MCHC 34.0 g/dl (32.3-36.5); MEAN CELL VOLUME 79.1 fl (79.0-92.2); MEAN PLT VOLUME 9.4 fl (9.4-12.4); RDW 15.1 % (12.2-16.4)
[2025-02-11] MEDS: VANCOMYCIN HCL 125 MG CAPSULE (RESTRICTED TO ID ONLY) PO SCH (00:19)
[2025-02-11 06:49] LABS: MCHC 34.6 g/dl (32.3-36.5); MEAN CELL VOLUME 77.8 fl (79.0-92.2); MEAN PLT VOLUME 8.8 fl (9.4-12.4); RDW 15.5 % (12.2-16.4)
[2025-02-11 06:59] LABS: CO2 23.0 mmol/L (21-32); GLUCOSE,RANDOM 91.0 mg/dL (74-106)
[2025-02-11 07:02] LABS: CREATININE 0.9 mg/dL (0.55-1.3); SGOT/AST 41.0 U/L (15-37); SGPT/ALT 21.0 U/L (13-61)
[2025-02-11 07:04] LABS: TOT PROT 5.3 g/dl (6.4-8.2)
[2025-02-11 07:05] LABS: ALK PHOS 62.0 U/L (45-117)
[2025-02-11] MEDS: PANTOPRAZOLE SODIUM 160 MG in SODIUM CHLORIDE 290 ML IVPB SCH (11:28)
[2025-02-11 20:08] LABS: IG A QN SERUM. 344 mg/dL (61-437)
[2025-02-11] MEDS: ATORVASTATIN CA 10 MG TABLET (FP) PO SCH (21:24)
[2025-02-12 09:05] LABS: MCHC 32.6 g/dl (32.3-36.5); MEAN CELL VOLUME 81.0 fl (79.0-92.2); MEAN PLT VOLUME 9.1 fl (9.4-12.4); RDW 16.2 % (12.2-16.4)
[2025-02-12 09:35] LABS: CO2 23.0 mmol/L (21-32); GLUCOSE,RANDOM 92.0 mg/dL (74-106)
[2025-02-12 09:37] LABS: CREATININE 0.8 mg/dL (0.55-1.3); SGOT/AST 49.0 U/L (15-37); SGPT/ALT 23.0 U/L (13-61)
[2025-02-12 09:39] LABS: ALK PHOS 61.0 U/L (45-117); TOT PROT 5.5 g/dl (6.4-8.2)
[2025-02-12] MEDS: POTASSIUM CHLORIDE ORAL LIQUID 20 MEQ/15 ML PO ONE (12:56)
[2025-02-12] MEDS: MAGNESIUM OXIDE 400 MG TABLET (FP) PO ONE (12:57)
[2025-02-13] MEDS: ACETAMINOPHEN 1000 MG/100 ML BAG IVPB ONE (04:24)
[2025-02-13 05:01] LABS: MCHC 32.7 g/dl (32.3-36.5); MEAN CELL VOLUME 83.6 fl (79.0-92.2); MEAN PLT VOLUME 9.1 fl (9.4-12.4); RDW 17.2 % (12.2-16.4)
[2025-02-13] MEDS ORDERED: LACTATED RINGERS SOLUTION 1,000 ML/1,000 ML INFUS.BAG IV SCH (05:05)
[2025-02-13 05:29] LABS: CO2 24.0 mmol/L (21-32); GLUCOSE,RANDOM 107.0 mg/dL (74-106)
[2025-02-13 05:32] LABS: CREATININE 0.9 mg/dL (0.55-1.3); SGOT/AST 68.0 U/L (15-37); SGPT/ALT 28.0 U/L (13-61)
[2025-02-13 05:34] LABS: TOT PROT 6.1 g/dl (6.4-8.2)
[2025-02-13 05:36] LABS: ALK PHOS 63.0 U/L (45-117)
[2025-02-13] MEDS: VANCOMYCIN HCL 125 MG CAPSULE (RESTRICTED TO ID ONLY) PO SCH (06:52)
[2025-02-13] MEDS: DEXTROSE 5%-LACTATED RINGERS 1,000 ML IV SCH (07:20)
[2025-02-13] MEDS: MINERAL OIL/PET HY-PHL TOPICAL OINTMENT 454 GM JAR TP SCH (10:29)
[2025-02-13] MEDS: AMINO ACIDS/PROTEIN HYDROLYS 30 ML LIQUID.PKT PO SCH (10:29)
[2025-02-13] MEDS: ACETAMINOPHEN 325 MG TABLET (FP) PO PRN (12:13)
[2025-02-13] MEDS: ATORVASTATIN CA 10 MG TABLET (FP) PO SCH (21:10)
[2025-02-13] MEDS: PANTOPRAZOLE SODIUM 160 MG in SODIUM CHLORIDE 290 ML IVPB SCH (23:30)
[2025-02-14 01:10] LABS: URINE APPEARANCE CLEAR; URINE BILIRUBIN NEGATIVE (NEGATIVE); URINE COLOR YELLOW; URINE GLUCOSE (UA) NEGATIVE (NEGATIVE); URINE KETONE NEGATIVE (NEGATIVE); URINE LEUK ESTERASE NEGATIVE (NEGATIVE); URINE NITRITE NEGATIVE (NEGATIVE); URINE PROTEIN TRACE (NEGATIVE); URINE UROBILINOGEN 0.2 mg/dL (0.2-1.0)
[2025-02-14 08:12] LABS: ABSOLUTE IMMATURE GRANULOCYTES 0.79 x10^3/uL (0.0-0.031); BASOPHILS # 0.17 x10^3/uL (0.01-0.08); EOSINOPHIL % 4.8 % (0.8-7.0); EOSINOPHILS # 0.84 x10^3/uL (0.04-0.54); MCHC 32.4 g/dl (32.3-36.5); MEAN CELL VOLUME 84.0 fl (79.0-92.2); MEAN PLT VOLUME 9.8 fl (9.4-12.4); MONOCYTE # 2.71 x10^3/uL (0.30-0.82); MONOCYTE % 15.5 % (5.3-12.2); RDW 17.4 % (12.2-16.4)
[2025-02-14 08:30] LABS: CO2 25.0 mmol/L (21-32); GLUCOSE,RANDOM 99.0 mg/dL (74-106)
[2025-02-14 08:33] LABS: CREATININE 0.9 mg/dL (0.55-1.3); SGOT/AST 44.0 U/L (15-37); SGPT/ALT 22.0 U/L (13-61)
[2025-02-14 08:35] LABS: TOT PROT 5.8 g/dl (6.4-8.2)
[2025-02-14 08:37] LABS: ALK PHOS 56.0 U/L (45-117)
[2025-02-14] MEDS: PANTOPRAZOLE SODIUM 40 MG VIAL IVPUSH SCH (10:14)
[2025-02-14] MEDS: ACETAMINOPHEN 1000 MG/100 ML BAG IVPB ONE (23:29)
[2025-02-15 09:11] LABS: ABSOLUTE IMMATURE GRANULOCYTES 0.56 x10^3/uL (0.0-0.031); BASOPHILS # 0.17 x10^3/uL (0.01-0.08); EOSINOPHIL % 5.3 % (0.8-7.0); EOSINOPHILS # 0.84 x10^3/uL (0.04-0.54); MCHC 32.0 g/dl (32.3-36.5); MEAN CELL VOLUME 84.2 fl (79.0-92.2); MEAN PLT VOLUME 9.5 fl (9.4-12.4); MONOCYTE # 2.11 x10^3/uL (0.30-0.82); MONOCYTE % 13.3 % (5.3-12.2); RDW 17.2 % (12.2-16.4)
[2025-02-15 09:38] LABS: CO2 25.0 mmol/L (21-32); GLUCOSE,RANDOM 106.0 mg/dL (74-106)
[2025-02-15 09:40] LABS: SGPT/ALT 17.0 U/L (13-61)
[2025-02-15 09:41] LABS: CREATININE 0.7 mg/dL (0.55-1.3); SGOT/AST 33.0 U/L (15-37)
[2025-02-15 09:42] LABS: TOT PROT 5.6 g/dl (6.4-8.2)
[2025-02-15 09:43] LABS: ALK PHOS 53.0 U/L (45-117)
[2025-02-15] MEDS: ACETAMINOPHEN 325 MG TABLET (FP) PO ONE (23:04)
[2025-02-16 08:44] LABS: ABSOLUTE IMMATURE GRANULOCYTES 0.35 x10^3/uL (0.0-0.031); BASOPHILS # 0.16 x10^3/uL (0.01-0.08); EOSINOPHIL % 6.6 % (0.8-7.0); EOSINOPHILS # 0.88 x10^3/uL (0.04-0.54); MCHC 32.2 g/dl (32.3-36.5); MEAN CELL VOLUME 84.3 fl (79.0-92.2); MEAN PLT VOLUME 10.4 fl (9.4-12.4); MONOCYTE # 1.70 x10^3/uL (0.30-0.82); MONOCYTE % 12.7 % (5.3-12.2); RDW 17.3 % (12.2-16.4)
[2025-02-16 09:18] LABS: CO2 27.0 mmol/L (21-32); GLUCOSE,RANDOM 87.0 mg/dL (74-106)
[2025-02-16 09:21] LABS: CREATININE 0.8 mg/dL (0.55-1.3); SGOT/AST 35.0 U/L (15-37); SGPT/ALT 17.0 U/L (13-61)
[2025-02-16 09:22] LABS: TOT PROT 6.0 g/dl (6.4-8.2)
[2025-02-16 09:24] LABS: ALK PHOS 59.0 U/L (45-117)
[2025-02-16] MEDS: POTASSIUM CHLORIDE ORAL LIQUID 20 MEQ/15 ML PO ONE (11:53)
[2025-02-17 08:54] LABS: ABSOLUTE IMMATURE GRANULOCYTES 0.17 x10^3/uL (0.0-0.031); BASOPHILS # 0.16 x10^3/uL (0.01-0.08); EOSINOPHIL % 7.9 % (0.8-7.0); EOSINOPHILS # 1.00 x10^3/uL (0.04-0.54); MCHC 31.8 g/dl (32.3-36.5); MEAN CELL VOLUME 83.3 fl (79.0-92.2); MEAN PLT VOLUME 9.7 fl (9.4-12.4); MONOCYTE # 1.20 x10^3/uL (0.30-0.82); MONOCYTE % 9.5 % (5.3-12.2); RDW 16.9 % (12.2-16.4)
[2025-02-17 09:22] LABS: CO2 25.0 mmol/L (21-32)
[2025-02-17 09:23] LABS: GLUCOSE,RANDOM 87.0 mg/dL (74-106); SGOT/AST 47.0 U/L (15-37); SGPT/ALT 21.0 U/L (13-61)
[2025-02-17 09:24] LABS: TOT PROT 6.2 g/dl (6.4-8.2)
[2025-02-17 09:25] LABS: CREATININE 0.7 mg/dL (0.55-1.3)
[2025-02-17 09:26] LABS: ALK PHOS 61.0 U/L (45-117)
[2025-02-17] MEDS: POTASSIUM CHLORIDE ORAL LIQUID 20 MEQ/15 ML PO ONE (16:10)
[2025-02-17] MEDS: PANTOPRAZOLE 40 MG TABLET PO SCH (21:29)
[2025-02-18] MEDS: POTASSIUM CHLORIDE ORAL LIQUID 20 MEQ/15 ML PO ONE (16:43)
[2025-02-18] MEDS: FUROSEMIDE 40 MG/4 ML INJECTABLE VIAL IVPUSH ONE (16:43)
[2025-02-18] MEDS: ONDANSETRON 4 MG/2 ML VIAL IVPUSH PRN (16:53)
[2025-02-18] MEDS: ALBUMIN HUMAN 25% 100 ML VIAL IV SCH (17:57)
[2025-02-19 08:39] LABS: ABSOLUTE IMMATURE GRANULOCYTES 0.07 x10^3/uL (0.0-0.031); BASOPHILS # 0.10 x10^3/uL (0.01-0.08); EOSINOPHIL % 8.3 % (0.8-7.0); EOSINOPHILS # 0.73 x10^3/uL (0.04-0.54); MCHC 31.6 g/dl (32.3-36.5); MEAN CELL VOLUME 84.2 fl (79.0-92.2); MEAN PLT VOLUME 10.1 fl (9.4-12.4); MONOCYTE # 1.02 x10^3/uL (0.30-0.82); MONOCYTE % 11.6 % (5.3-12.2); RDW 17.1 % (12.2-16.4)
[2025-02-19 09:08] LABS: CO2 26.0 mmol/L (21-32); GLUCOSE,RANDOM 76.0 mg/dL (74-106)
[2025-02-19 09:11] LABS: SGOT/AST 35.0 U/L (15-37); SGPT/ALT 16.0 U/L (13-61)
[2025-02-19 09:12] LABS: CREATININE 0.7 mg/dL (0.55-1.3)
[2025-02-19 09:13] LABS: TOT PROT 6.1 g/dl (6.4-8.2)
[2025-02-19 09:14] LABS: ALK PHOS 56.0 U/L (45-117)
[2025-02-19] MEDS: MAGNESIUM SULFATE IN WATER 2 GM/50 ML IVPB IVPB ONE (11:33)
[2025-02-19] MEDS: MAGNESIUM OXIDE 400 MG TABLET (FP) PO ONE (14:00)
[2025-02-19] MEDS: MAGNESIUM 2GM/50ML STERILE WATER IVPB IVPB ONE (14:01)
[2025-02-19] MEDS: FUROSEMIDE 40 MG/4 ML INJECTABLE VIAL IVPUSH ONE (14:12)
[2025-02-19] MEDS: POTASSIUM CHLORIDE ORAL LIQUID 20 MEQ/15 ML PO ONE (14:12)
[2025-02-19] MEDS: ALBUMIN HUMAN 25% 100 ML VIAL IV ONE (15:21)
[2025-02-20] MEDS: FUROSEMIDE 40 MG TABLET (FP) PO ONE (17:37)
[2025-02-20] MEDS: MAGNESIUM OXIDE 400 MG TABLET (FP) PO ONE (17:38)
[2025-02-20] MEDS: POTASSIUM CHLORIDE ORAL LIQUID 20 MEQ/15 ML PO ONE (17:38)
[2025-02-21 07:24] LABS: CO2 28.0 mmol/L (21-32); GLUCOSE,RANDOM 103.0 mg/dL (74-106)
[2025-02-21 07:27] LABS: CREATININE 1.0 mg/dL (0.55-1.3); SGOT/AST 37.0 U/L (15-37); SGPT/ALT 17.0 U/L (13-61)
[2025-02-21 07:29] LABS: TOT PROT 6.9 g/dl (6.4-8.2)
[2025-02-21 07:30] LABS: ALK PHOS 61.0 U/L (45-117)
[2025-02-21 11:01] LABS: ABSOLUTE IMMATURE GRANULOCYTES 0.16 x10^3/uL (0.0-0.031); BASOPHILS # 0.16 x10^3/uL (0.01-0.08); EOSINOPHIL % 4.2 % (0.8-7.0); EOSINOPHILS # 0.66 x10^3/uL (0.04-0.54); MCHC 31.5 g/dl (32.3-36.5); MEAN CELL VOLUME 85.0 fl (79.0-92.2); MEAN PLT VOLUME 9.7 fl (9.4-12.4); MONOCYTE # 1.75 x10^3/uL (0.30-0.82); MONOCYTE % 11.3 % (5.3-12.2); RDW 17.2 % (12.2-16.4)
[2025-02-21] MEDS: SUCRALFATE 1 GM/10 ML UNIT DOSE CUPS PO SCH (11:59)
[2025-02-21] MEDS: FUROSEMIDE 40 MG/4 ML INJECTABLE VIAL IVPUSH ONE (11:59)
[2025-02-21 12:24] LABS: ERYTHROCYTE SEDIMENTATION RATE 107 mm/hr (0-20)
[2025-02-22 08:43] LABS: MCHC 31.0 g/dl (32.3-36.5); MEAN CELL VOLUME 85.9 fl (79.0-92.2); MEAN PLT VOLUME 10.3 fl (9.4-12.4); RDW 17.4 % (12.2-16.4)
[2025-02-22 09:57] LABS: ERYTHROCYTE SEDIMENTATION RATE 111 mm/hr (0-20)
[2025-02-22] MEDS ORDERED: SENNOSIDES 8.6MG TABLET (FP) PO PRN (12:48)
[2025-02-22] MEDS: ITRACONAZOLE 100 MG CAPSULE PO SCH (14:52)
[2025-02-22] MEDS: ACETAMINOPHEN 325 MG TABLET (FP) PO PRN (17:22)
[2025-02-22] MEDS: MIRTAZAPINE 15 MG TABLET (FP) PO SCH (21:45)
[2025-02-22] MEDS ORDERED: SENNOSIDES 8.6MG TABLET (FP) PO SCH (22:00)
[2025-02-23 09:01] LABS: ABSOLUTE IMMATURE GRANULOCYTES 0.09 x10^3/uL (0.0-0.031); BASOPHILS # 0.14 x10^3/uL (0.01-0.08); EOSINOPHIL % 4.2 % (0.8-7.0); EOSINOPHILS # 0.50 x10^3/uL (0.04-0.54); MCHC 30.0 g/dl (32.3-36.5); MEAN CELL VOLUME 86.7 fl (79.0-92.2); MEAN PLT VOLUME 10.2 fl (9.4-12.4); MONOCYTE # 1.51 x10^3/uL (0.30-0.82); MONOCYTE % 12.8 % (5.3-12.2); RDW 17.3 % (12.2-16.4)
[2025-02-23 09:20] LABS: CO2 30.0 mmol/L (21-32); GLUCOSE,RANDOM 87.0 mg/dL (74-106)
[2025-02-23 09:23] LABS: CREATININE 0.9 mg/dL (0.55-1.3); SGOT/AST 49.0 U/L (15-37); SGPT/ALT 15.0 U/L (13-61)
[2025-02-23 09:25] LABS: TOT PROT 7.1 g/dl (6.4-8.2)
[2025-02-23 09:26] LABS: ALK PHOS 60.0 U/L (45-117)
[2025-02-23 09:40] LABS: LDH 188.0 U/L (87-246)
[2025-02-23 10:22] LABS: HIV INTERPRETATION NEGATIVE (NEGATIVE)
[2025-02-23 10:44] LABS: ERYTHROCYTE SEDIMENTATION RATE 111 mm/hr (0-20)
[2025-02-23] MEDS: ACETAMINOPHEN 1000 MG/100 ML BAG IVPB PRN (13:49)
[2025-02-23 14:17] LABS: ARTERIAL BLD GAS O2 SATURATION 90.8 % (95-98); ARTERIAL BLOOD GAS BASE EXCESS 2.4 mmol/L (-2-2); ARTERIAL BLOOD GAS PCO2 37.80 mmHg (35-45); ARTERIAL BLOOD GAS PO2 56.0 mmHg (80-100); BG HCT 26.0 % (35.4-49); O2 CONTENT 1.12 % vol
[2025-02-23 14:21] LABS: ALLENS TEST POSITIVE
[2025-02-23 15:09] LABS: ABSOLUTE IMMATURE GRANULOCYTES 0.07 x10^3/uL (0.0-0.031); BASOPHILS # 0.10 x10^3/uL (0.01-0.08); EOSINOPHIL % 3.1 % (0.8-7.0); EOSINOPHILS # 0.39 x10^3/uL (0.04-0.54); MCHC 30.5 g/dl (32.3-36.5); MEAN CELL VOLUME 86.3 fl (79.0-92.2); MEAN PLT VOLUME 10.3 fl (9.4-12.4); MONOCYTE # 1.71 x10^3/uL (0.30-0.82); MONOCYTE % 13.5 % (5.3-12.2); RDW 17.2 % (12.2-16.4)
[2025-02-23] MEDS: AMPHOTERICIN B LIPOSOMAL IVPB SCH (15:26)
[2025-02-23] MEDS: DEXTROSE 5% IVPB SCH (15:26)
[2025-02-23] MEDS: WATER IVPB SCH (15:26)
[2025-02-23] MEDS: VANCOMYCIN 1 GM PREMIX (F) 1 GM/200 ML BAG IVPB SCH (15:27)
[2025-02-23 15:32] LABS: CO2 28.0 mmol/L (21-32)
[2025-02-23 15:33] LABS: GLUCOSE,RANDOM 99.0 mg/dL (74-106)
[2025-02-23 15:35] LABS: SGOT/AST 44.0 U/L (15-37); SGPT/ALT 16.0 U/L (13-61)
[2025-02-23 15:36] LABS: CREATININE 1.0 mg/dL (0.55-1.3)
[2025-02-23 15:37] LABS: TOT PROT 7.0 g/dl (6.4-8.2)
[2025-02-23 15:38] LABS: ALK PHOS 58.0 U/L (45-117)
[2025-02-23] MEDS: LACTATED RINGERS SOLUTION 1,000 ML/1,000 ML INFUS.BAG IV SCH (16:04)
[2025-02-23 16:43] LABS: INR 1.5 (0.83-1.09); PROTHROMBIN TIME (PATIENT) 16.3 SEC (9.7-13.0)
[2025-02-23] MEDS: CEFTRIAXONE 2 GM-D5W BAG 2 GM/50 ML BAG IVPB SCH (17:59)
[2025-02-23] MEDS: PHYTONADIONE 10 MG/1 ML AMP IVPB ONE (18:15)
[2025-02-23] MEDS ORDERED: ONDANSETRON 4 MG/2 ML VIAL IVPUSH PRN (19:25)
[2025-02-23] MEDS ORDERED: SENNOSIDES 8.6MG TABLET (FP) PO PRN (19:25)
[2025-02-23] MEDS: MIRTAZAPINE 15 MG TABLET (FP) PO SCH (21:18)
[2025-02-23] MEDS: PANTOPRAZOLE 40 MG TABLET PO SCH (21:18)
[2025-02-23] MEDS: ATORVASTATIN CA 10 MG TABLET (FP) PO SCH (21:19)
[2025-02-24] MEDS: VANCOMYCIN/WATER FOR INJ (PEG) 1 GM/200 ML BAG IVPB SCH (01:18)
[2025-02-24 04:49] LABS: URINE APPEARANCE CLEAR; URINE BILIRUBIN NEGATIVE (NEGATIVE); URINE COLOR YELLOW; URINE GLUCOSE (UA) NEGATIVE (NEGATIVE); URINE KETONE NEGATIVE (NEGATIVE)
[2025-02-24 04:50] LABS: EPI CELLS 7.4 /uL (0-25.1); HYALINE CASTS 1.13 /uL (0-3.1); URINE BACTERIA 5.7 /uL (0-1359); URINE LEUK ESTERASE NEGATIVE (NEGATIVE); URINE NITRITE NEGATIVE (NEGATIVE); URINE PROTEIN TRACE (NEGATIVE); URINE RBC 123.9 /uL (0-23.9); URINE UROBILINOGEN 0.2 mg/dL (0.2-1.0)
[2025-02-24] MEDS: SUCRALFATE 1 GM/10 ML UNIT DOSE CUPS PO SCH (06:14)
[2025-02-24 06:32] LABS: ABSOLUTE IMMATURE GRANULOCYTES 0.22 x10^3/uL (0.0-0.031); BASOPHILS # 0.14 x10^3/uL (0.01-0.08); EOSINOPHIL % 4.2 % (0.8-7.0); EOSINOPHILS # 0.65 x10^3/uL (0.04-0.54); MCHC 29.8 g/dl (32.3-36.5); MEAN CELL VOLUME 87.8 fl (79.0-92.2); MEAN PLT VOLUME 10.4 fl (9.4-12.4); MONOCYTE # 0.86 x10^3/uL (0.30-0.82); MONOCYTE % 5.5 % (5.3-12.2); RDW 17.3 % (12.2-16.4)
[2025-02-24 07:00] LABS: INR 1.36 (0.83-1.09); PROTHROMBIN TIME (PATIENT) 14.8 SEC (9.7-13.0)
[2025-02-24 07:33] LABS: CO2 28.0 mmol/L (21-32); GLUCOSE,RANDOM 95.0 mg/dL (74-106)
[2025-02-24 07:36] LABS: CREATININE 1.5 mg/dL (0.55-1.3); SGOT/AST 48.0 U/L (15-37); SGPT/ALT 15.0 U/L (13-61)
[2025-02-24 07:38] LABS: TOT PROT 6.3 g/dl (6.4-8.2)
[2025-02-24 07:39] LABS: ALK PHOS 50.0 U/L (45-117)
[2025-02-24] MEDS: AMINO ACIDS/PROTEIN HYDROLYS 30 ML LIQUID.PKT PO SCH (09:55)
[2025-02-24] MEDS: AMPHOTERICIN B LIPOSOMAL IVPB SCH (09:56)
[2025-02-24] MEDS: DEXTROSE 5% IVPB SCH (09:56)
[2025-02-24] MEDS: WATER IVPB SCH (09:56)
[2025-02-24] MEDS: ALBUMIN HUMAN 25% 100 ML VIAL IV SCH (13:24)
[2025-02-24] MEDS: SODIUM CHLORIDE 250 ML IV STA (13:31)
[2025-02-24] MEDS: SODIUM CHLORIDE 1,000 ML IV SCH (14:00)
[2025-02-24] MEDS: MINERAL OIL/PET HY-PHL TOPICAL OINTMENT 454 GM JAR TP SCH (18:07)
[2025-02-24] MEDS: VANCOMYCIN HCL 125 MG CAPSULE (RESTRICTED TO ID ONLY) PO SCH (20:27)
[2025-02-24] MEDS: VANCOMYCIN 1,000 MG in DEXTROSE 5%-WATER - 250 ML IVPB SCH (20:27)
[2025-02-24] MEDS: CEFTRIAXONE 2 GM in DEXTROSE 5%-WATER 100 ML IVPB SCH (20:28)
[2025-02-25 06:35] LABS: ABSOLUTE IMMATURE GRANULOCYTES 0.10 x10^3/uL (0.0-0.031); BASOPHILS # 0.08 x10^3/uL (0.01-0.08); EOSINOPHIL % 11.9 % (0.8-7.0); EOSINOPHILS # 1.10 x10^3/uL (0.04-0.54); MCHC 30.2 g/dl (32.3-36.5); MEAN CELL VOLUME 86.7 fl (79.0-92.2); MEAN PLT VOLUME 10.2 fl (9.4-12.4); MONOCYTE # 0.85 x10^3/uL (0.30-0.82); MONOCYTE % 9.2 % (5.3-12.2); RDW 17.4 % (12.2-16.4)
[2025-02-25 06:58] LABS: CO2 26 mmol/L (21-32)
[2025-02-25 07:00] LABS: GLUCOSE,RANDOM 77 mg/dL (74-106); SGOT/AST 35 U/L (15-37); SGPT/ALT 10 U/L (13-61)
[2025-02-25 07:01] LABS: CREATININE 1.4 mg/dL (0.55-1.3); TOT PROT 6.2 g/dl (6.4-8.2)
[2025-02-25 07:03] LABS: ALK PHOS 47 U/L (45-117)
[2025-02-25] MEDS: KCL 10 MEQ IVPB 10 MEQ/100 ML INFUS.BAG IVPB SCH (08:47)
[2025-02-25] MEDS: ONDANSETRON 4 MG/2 ML VIAL IVPUSH PRN (08:48)
[2025-02-25] MEDS: POTASSIUM CHLORIDE TABS 20 MEQ TABLET.ER (FP) PO ONE (08:48)
[2025-02-25] MEDS: MAGNESIUM SULFATE IN WATER 2 GM/50 ML IVPB IVPB ONE (08:52)
[2025-02-25] MEDS ORDERED: POTASSIUM CHLORIDE ORAL LIQUID 20 MEQ/15 ML PO SCH (10:00)
[2025-02-25] MEDS: MAGNESIUM OXIDE 400 MG TABLET (FP) PO ONE (10:26)
[2025-02-25] MEDS: CEFTRIAXONE 2 GM in DEXTROSE 5%-WATER 100 ML IVPB SCH (11:50)
[2025-02-25 16:07] VITALS: BMI 21.9
[2025-02-25] MEDS: ACETAMINOPHEN 1000 MG/100 ML BAG IVPB PRN (16:20)
[2025-02-25 17:04] LABS: MCHC 30.5 g/dl (32.3-36.5); MEAN CELL VOLUME 87.5 fl (79.0-92.2); MEAN PLT VOLUME 10.3 fl (9.4-12.4); RDW 16.7 % (12.2-16.4)
[2025-02-25 17:24] LABS: CO2 24.0 mmol/L (21-32); GLUCOSE,RANDOM 109.0 mg/dL (74-106)
[2025-02-25 17:27] LABS: CREATININE 1.4 mg/dL (0.55-1.3)
[2025-02-25] MEDS: diphenhydrAMINE HCL 25 MG CAPSULE (FP) PO ONE (18:10)
[2025-02-25] MEDS: VANCOMYCIN HCL 125 MG CAPSULE (RESTRICTED TO ID ONLY) PO SCH (19:30)
[2025-02-25] MEDS: POTASSIUM CHLORIDE ORAL LIQUID 20 MEQ/15 ML PO SCH (21:19)
[2025-02-25] MEDS: POTASSIUM CHLORIDE 40 MEQ in DEXTROSE 5%-LACTATED RINGERS 1,000 ML IV SCH (21:22)
[2025-02-25] MEDS: DEXTROSE 5%-LACTATED RINGERS 980 ML with POTASSIUM CHLORIDE 40 MEQ IV SCH (21:49)
[2025-02-26 06:27] LABS: CO2 25.0 mmol/L (21-32); GLUCOSE,RANDOM 96.0 mg/dL (74-106)
[2025-02-26 06:30] LABS: CREATININE 1.6 mg/dL (0.55-1.3); SGOT/AST 57.0 U/L (15-37); SGPT/ALT 17.0 U/L (13-61)
[2025-02-26 06:32] LABS: TOT PROT 6.3 g/dl (6.4-8.2)
[2025-02-26 06:33] LABS: ALK PHOS 63.0 U/L (45-117)
[2025-02-26 06:44] LABS: ABSOLUTE IMMATURE GRANULOCYTES 0.12 x10^3/uL (0.0-0.031); BASOPHILS # 0.08 x10^3/uL (0.01-0.08); EOSINOPHIL % 10.8 % (0.8-7.0); EOSINOPHILS # 1.05 x10^3/uL (0.04-0.54); MCHC 30.2 g/dl (32.3-36.5); MEAN CELL VOLUME 87.9 fl (79.0-92.2); MEAN PLT VOLUME 10.9 fl (9.4-12.4); MONOCYTE # 1.44 x10^3/uL (0.30-0.82); MONOCYTE % 14.8 % (5.3-12.2); RDW 16.7 % (12.2-16.4)
[2025-02-26] MEDS: VANCOMYCIN HCL 125 MG CAPSULE (RESTRICTED TO ID ONLY) PO SCH (12:19)
[2025-02-26] MEDS: COSYNTROPIN 0.25 MG VIAL IVPUSH ONE ×2 (14:39→17:03)
[2025-02-26] MEDS: SODIUM CHLORIDE 0.45% 1,000 ML IV SCH (18:40)
[2025-02-26] MEDS: ZINC OXIDE 20% TOPICAL OINTMENT 30 GM TUBE TP SCH (21:41)
[2025-02-27 07:08] LABS: CO2 24.0 mmol/L (21-32); GLUCOSE,RANDOM 90.0 mg/dL (74-106)
[2025-02-27 07:11] LABS: SGOT/AST 54.0 U/L (15-37); SGPT/ALT 20.0 U/L (13-61)
[2025-02-27 07:13] LABS: TOT PROT 6.4 g/dl (6.4-8.2)
[2025-02-27 07:14] LABS: ALK PHOS 69.0 U/L (45-117)
[2025-02-27 07:42] LABS: ABSOLUTE IMMATURE GRANULOCYTES 0.07 x10^3/uL (0.0-0.031); BASOPHILS # 0.07 x10^3/uL (0.01-0.08); EOSINOPHIL % 10.5 % (0.8-7.0); EOSINOPHILS # 0.79 x10^3/uL (0.04-0.54); MCHC 30.7 g/dl (32.3-36.5); MEAN CELL VOLUME 85.6 fl (79.0-92.2); MEAN PLT VOLUME 10.2 fl (9.4-12.4); MONOCYTE # 1.16 x10^3/uL (0.30-0.82); MONOCYTE % 15.4 % (5.3-12.2); RDW 16.8 % (12.2-16.4)
[2025-02-27 08:35] LABS: CREATININE 1.2 mg/dL (0.55-1.3)
[2025-02-27] MEDS: ACETAMINOPHEN 1000 MG/100 ML BAG IVPB PRN (12:36)
[2025-02-27] MEDS ORDERED: ACETAMINOPHEN 1000 MG/100 ML BAG IVPB PRN (12:42)
[2025-02-27] MEDS: HYDROCORTISONE SOD SUCCINATE 100 MG/2 ML VIAL IVPB SCH (13:13)
[2025-02-27 13:27] LABS: URINE APPEARANCE CLEAR; URINE BILIRUBIN NEGATIVE (NEGATIVE); URINE COLOR YELLOW; URINE GLUCOSE (UA) NEGATIVE (NEGATIVE); URINE KETONE NEGATIVE (NEGATIVE); URINE LEUK ESTERASE NEGATIVE (NEGATIVE); URINE NITRITE NEGATIVE (NEGATIVE); URINE PROTEIN NEGATIVE (NEGATIVE); URINE UROBILINOGEN 0.2 mg/dL (0.2-1.0)
[2025-02-27] MEDS: SODIUM CHLORIDE 0.45% 1,000 ML IV SCH (17:20)
[2025-02-27 18:06] LABS: IG A QN SERUM. 343 mg/dL (61-437)
[2025-02-27 18:47] LABS: ARTERIAL BLD GAS O2 SATURATION 97.2 % (95-98); ARTERIAL BLOOD GAS BASE EXCESS -2.7 mmol/L (-2-2); ARTERIAL BLOOD GAS PCO2 43.00 mmHg (35-45); ARTERIAL BLOOD GAS PO2 99.6 mmHg (80-100); BG HCT 43.0 % (35.4-49); O2 CONTENT 1.98 % vol
[2025-02-27] MEDS: FLUDROCORTISONE ACETATE 0.1 MG TABLET (FP) PO SCH (21:07)
[2025-02-28 06:57] LABS: ABSOLUTE IMMATURE GRANULOCYTES 0.10 x10^3/uL (0.0-0.031); BASOPHILS # 0.02 x10^3/uL (0.01-0.08); EOSINOPHIL % 0.0 % (0.8-7.0); EOSINOPHILS # 0.00 x10^3/uL (0.04-0.54); MCHC 30.5 g/dl (32.3-36.5); MEAN CELL VOLUME 87.0 fl (79.0-92.2); MEAN PLT VOLUME 11.0 fl (9.4-12.4); MONOCYTE # 0.34 x10^3/uL (0.30-0.82); MONOCYTE % 3.8 % (5.3-12.2); RDW 16.6 % (12.2-16.4)
[2025-02-28 07:10] LABS: GLUCOSE,RANDOM 146 mg/dL (74-106)
[2025-02-28 07:12] LABS: CREATININE 1.5 mg/dL (0.55-1.3); TOT PROT 6.9 g/dl (6.4-8.2)
[2025-02-28 07:13] LABS: ALK PHOS 72 U/L (45-117); CO2 24 mmol/L (21-32); SGOT/AST 43 U/L (15-37); SGPT/ALT 18 U/L (13-61)
[2025-02-28] MEDS: SODIUM ZIRCONIUM CYCLOSILICATE (LOKELMA) 5 GM PACKET PO ONE (08:14)
[2025-02-28] MEDS ORDERED: HYDROCORTISONE 20 MG, HYDROCORTISONE 5 MG PO SCH (08:30)
[2025-02-28 09:24] LABS: CO2 23.0 mmol/L (21-32); GLUCOSE,RANDOM 140.0 mg/dL (74-106)
[2025-02-28 09:27] LABS: CREATININE 1.4 mg/dL (0.55-1.3); SGPT/ALT 19.0 U/L (13-61)
[2025-02-28 09:28] LABS: SGOT/AST 38.0 U/L (15-37)
[2025-02-28 09:29] LABS: TOT PROT 6.8 g/dl (6.4-8.2)
[2025-02-28 09:30] LABS: ALK PHOS 70.0 U/L (45-117)
[2025-02-28] MEDS ORDERED: DEXTROSE 50%-WATER 25 GM/50 ML DISP.SYRIN ONE ×2 (12:40→18:52)
[2025-02-28] MEDS: CALCIUM GLUCONATE 10% - 1,000 MG/10 ML VIAL IVPUSH ONE (12:43)
[2025-02-28] MEDS: INSULIN REGULAR HUMAN 100 UNITS/ML *VIAL IVPUSH ONE (12:43)
[2025-02-28] MEDS: DEXTROSE 50%-WATER - 25 GM/50 ML VIAL IVPUSH ONE (12:45)
[2025-02-28 13:08] LABS: ERYTHROCYTE SEDIMENTATION RATE 102 mm/hr (0-20)
[2025-02-28 18:10] LABS: CO2 21 mmol/L (21-32)
[2025-02-28 18:13] LABS: CREATININE 1.8 mg/dL (0.55-1.3)
[2025-02-28 18:33] LABS: GLUCOSE,RANDOM 47 mg/dL (74-106)
[2025-02-28] MEDS ORDERED: DEXTROSE 50%-WATER - 25 GM/50 ML VIAL IVPUSH PRN (18:45)
[2025-02-28] MEDS: DEXTROSE 50%-WATER - 25 GM/50 ML VIAL IVPUSH PRN (18:55)
[2025-02-28] MEDS: SODIUM CHLORIDE 0.45% 1,000 ML IV SCH (19:30)
[2025-03-01] MEDS ORDERED: HYDROCORTISONE 20 MG TABLET PO SCH (06:00)
[2025-03-01 07:34] LABS: ABSOLUTE IMMATURE GRANULOCYTES 0.32 x10^3/uL (0.0-0.031); BASOPHILS # 0.03 x10^3/uL (0.01-0.08); EOSINOPHIL % 0.1 % (0.8-7.0); EOSINOPHILS # 0.01 x10^3/uL (0.04-0.54); MCHC 31.4 g/dl (32.3-36.5); MEAN CELL VOLUME 84.9 fl (79.0-92.2); MEAN PLT VOLUME 10.9 fl (9.4-12.4); MONOCYTE # 0.80 x10^3/uL (0.30-0.82); MONOCYTE % 4.4 % (5.3-12.2); RDW 17.1 % (12.2-16.4)
[2025-03-01 08:10] LABS: CO2 22.0 mmol/L (21-32); CREATININE 2.0 mg/dL (0.55-1.3); GLUCOSE,RANDOM 140.0 mg/dL (74-106); SGPT/ALT 18.0 U/L (13-61)
[2025-03-01 08:11] LABS: SGOT/AST 36.0 U/L (15-37)
[2025-03-01 08:14] LABS: TOT PROT 5.8 g/dl (6.4-8.2)
[2025-03-01 08:16] LABS: ALK PHOS 59.0 U/L (45-117)
[2025-03-01] MEDS: SODIUM CHLORIDE 0.45% 1,000 ML IV SCH (09:03)
[2025-03-01] MEDS: HYDROCORTISONE 20 MG, HYDROCORTISONE 5 MG PO SCH (09:04)
[2025-03-02 06:34] LABS: ABSOLUTE IMMATURE GRANULOCYTES 0.18 x10^3/uL (0.0-0.031); BASOPHILS # 0.01 x10^3/uL (0.01-0.08); EOSINOPHIL % 0.0 % (0.8-7.0); EOSINOPHILS # 0.00 x10^3/uL (0.04-0.54); MCHC 31.6 g/dl (32.3-36.5); MEAN CELL VOLUME 83.3 fl (79.0-92.2); MEAN PLT VOLUME 10.4 fl (9.4-12.4); MONOCYTE # 0.96 x10^3/uL (0.30-0.82); MONOCYTE % 7.2 % (5.3-12.2); RDW 17.2 % (12.2-16.4)
[2025-03-02 07:06] LABS: CO2 19.0 mmol/L (21-32); GLUCOSE,RANDOM 144.0 mg/dL (74-106)
[2025-03-02 07:09] LABS: CREATININE 2.9 mg/dL (0.55-1.3); SGOT/AST 67.0 U/L (15-37); SGPT/ALT 36.0 U/L (13-61)
[2025-03-02 07:10] LABS: TOT PROT 6.0 g/dl (6.4-8.2)
[2025-03-02 07:12] LABS: ALK PHOS 59.0 U/L (45-117)
[2025-03-02 10:03] LABS: EPI CELLS 10 /uL (0-25.1); HYALINE CASTS 3 /uL (0-3.1); URINE APPEARANCE CLEAR; URINE BACTERIA 17 /uL (0-1359); URINE BILIRUBIN NEGATIVE (NEGATIVE); URINE COLOR YELLOW; URINE GLUCOSE (UA) NEGATIVE (NEGATIVE); URINE KETONE NEGATIVE (NEGATIVE); URINE LEUK ESTERASE TRACE (NEGATIVE); URINE NITRITE NEGATIVE (NEGATIVE); URINE PROTEIN TRACE (NEGATIVE); URINE RBC 51 /uL (0-23.9); URINE UROBILINOGEN 0.2 mg/dL (0.2-1.0); URINE WBC 29 /uL (0-25.8)
[2025-03-02] MEDS: LACTATED RINGERS SOLUTION 1,000 ML/1,000 ML INFUS.BAG IV SCH (13:35)
[2025-03-03 06:33] LABS: ABSOLUTE IMMATURE GRANULOCYTES 0.15 x10^3/uL (0.0-0.031); BASOPHILS # 0.01 x10^3/uL (0.01-0.08); EOSINOPHIL % 0.0 % (0.8-7.0); EOSINOPHILS # 0.00 x10^3/uL (0.04-0.54); MCHC 32.4 g/dl (32.3-36.5); MEAN CELL VOLUME 82.2 fl (79.0-92.2); MEAN PLT VOLUME 10.0 fl (9.4-12.4); MONOCYTE # 0.74 x10^3/uL (0.30-0.82); MONOCYTE % 7.6 % (5.3-12.2); RDW 17.2 % (12.2-16.4)
[2025-03-03 06:48] LABS: CO2 18.0 mmol/L (21-32); GLUCOSE,RANDOM 137.0 mg/dL (74-106)
[2025-03-03 06:51] LABS: CREATININE 3.6 mg/dL (0.55-1.3); SGOT/AST 121.0 U/L (15-37); SGPT/ALT 75.0 U/L (13-61)
[2025-03-03 06:53] LABS: TOT PROT 5.9 g/dl (6.4-8.2)
[2025-03-03 06:54] LABS: ALK PHOS 64.0 U/L (45-117)
[2025-03-03] MEDS: MAGNESIUM 1GM/D5W - 1 GM/100 ML IVPB IVPB ONE (08:23)
[2025-03-03] MEDS: LACTATED RINGERS SOLUTION 1,000 ML/1,000 ML INFUS.BAG IV SCH (11:35)
[2025-03-03 14:16] LABS: EPI CELLS 6 /uL (0-25.1); HYALINE CASTS 1 /uL (0-3.1); URINE APPEARANCE CLEAR; URINE BACTERIA 22 /uL (0-1359); URINE BILIRUBIN NEGATIVE (NEGATIVE); URINE COLOR YELLOW; URINE GLUCOSE (UA) NEGATIVE (NEGATIVE); URINE KETONE NEGATIVE (NEGATIVE); URINE LEUK ESTERASE NEGATIVE (NEGATIVE); URINE NITRITE NEGATIVE (NEGATIVE); URINE PROTEIN TRACE (NEGATIVE); URINE RBC 50 /uL (0-23.9); URINE UROBILINOGEN 0.2 mg/dL (0.2-1.0); URINE WBC 10 /uL (0-25.8)
[2025-03-03] MEDS: VANCOMYCIN HCL 125 MG CAPSULE (RESTRICTED TO ID ONLY) PO SCH (17:02)
[2025-03-03] MEDS ORDERED: SENNOSIDES 8.6MG TABLET (FP) PO PRN (20:09)
[2025-03-03] MEDS ORDERED: ONDANSETRON 4 MG/2 ML VIAL IVPUSH PRN (20:09)
[2025-03-03] MEDS: HYDROCORTISONE 20 MG, HYDROCORTISONE 5 MG PO SCH (21:42)
[2025-03-03] MEDS: ZINC OXIDE 20% TOPICAL OINTMENT 30 GM TUBE TP SCH (21:43)
[2025-03-03] MEDS: PANTOPRAZOLE 40 MG TABLET PO SCH (21:58)
[2025-03-04] MEDS: SUCRALFATE 1 GM/10 ML UNIT DOSE CUPS PO SCH (06:03)
[2025-03-04] MEDS: AMINO ACIDS/PROTEIN HYDROLYS 30 ML LIQUID.PKT PO SCH (08:30)
[2025-03-04 08:40] LABS: ABSOLUTE IMMATURE GRANULOCYTES 0.27 x10^3/uL (0.0-0.031); BASOPHILS # 0.01 x10^3/uL (0.01-0.08); EOSINOPHIL % 0.2 % (0.8-7.0); EOSINOPHILS # 0.02 x10^3/uL (0.04-0.54); MCHC 32.2 g/dl (32.3-36.5); MEAN CELL VOLUME 82.7 fl (79.0-92.2); MEAN PLT VOLUME 10.7 fl (9.4-12.4); MONOCYTE # 0.85 x10^3/uL (0.30-0.82); MONOCYTE % 9.6 % (5.3-12.2); RDW 17.4 % (12.2-16.4)
[2025-03-04 09:12] LABS: GLUCOSE,RANDOM 123.0 mg/dL (74-106)
[2025-03-04 09:13] LABS: CO2 19.0 mmol/L (21-32)
[2025-03-04 09:15] LABS: SGOT/AST 101.0 U/L (15-37); SGPT/ALT 92.0 U/L (13-61)
[2025-03-04 09:17] LABS: CREATININE 3.9 mg/dL (0.55-1.3); TOT PROT 6.2 g/dl (6.4-8.2)
[2025-03-04 09:18] LABS: ALK PHOS 71.0 U/L (45-117)
[2025-03-04] MEDS: FLUDROCORTISONE ACETATE 0.1 MG TABLET (FP) PO SCH (10:32)
[2025-03-04] MEDS: MINERAL OIL/PET HY-PHL TOPICAL OINTMENT 454 GM JAR TP SCH (10:32)
[2025-03-04 20:18] LABS: URINE APPEARANCE Clear; URINE BILIRUBIN Negative (NEGATIVE); URINE COLOR Yellow; URINE GLUCOSE (UA) Negative (NEGATIVE); URINE KETONE Negative (NEGATIVE); URINE LEUK ESTERASE Negative (NEGATIVE); URINE NITRITE Negative (NEGATIVE); URINE PROTEIN 1+ (NEGATIVE); URINE UROBILINOGEN 0.2 mg/dL (0.2-1.0)
[2025-03-05 07:49] LABS: ABSOLUTE IMMATURE GRANULOCYTES 0.52 x10^3/uL (0.0-0.031); BASOPHILS # 0.02 x10^3/uL (0.01-0.08); EOSINOPHIL % 0.1 % (0.8-7.0); EOSINOPHILS # 0.01 x10^3/uL (0.04-0.54); MCHC 32.4 g/dl (32.3-36.5); MEAN CELL VOLUME 82.2 fl (79.0-92.2); MEAN PLT VOLUME 9.9 fl (9.4-12.4); MONOCYTE # 2.11 x10^3/uL (0.30-0.82); MONOCYTE % 15.6 % (5.3-12.2); RDW 18.2 % (12.2-16.4)
[2025-03-05 08:22] LABS: GLUCOSE,RANDOM 144.0 mg/dL (74-106)
[2025-03-05 08:23] LABS: CO2 19.0 mmol/L (21-32)
[2025-03-05 08:25] LABS: CREATININE 3.7 mg/dL (0.55-1.3); SGOT/AST 49.0 U/L (15-37); SGPT/ALT 76.0 U/L (13-61)
[2025-03-05 08:27] LABS: TOT PROT 6.4 g/dl (6.4-8.2)
[2025-03-05 08:28] LABS: ALK PHOS 82.0 U/L (45-117)
[2025-03-05] MEDS: POTASSIUM CHLORIDE ORAL LIQUID 20 MEQ/15 ML PO ONE (10:16)
[2025-03-05] MEDS ORDERED: ACETAMINOPHEN 1000 MG/100 ML BAG IVPB ONE (12:30)
[2025-03-05] MEDS: ACETAMINOPHEN 325 MG TABLET (FP) PO SCH (12:50)
[2025-03-05] MEDS: LIDOCAINE 4% PATCH TP ONE ×3 (12:51→12:56)
[2025-03-05] MEDS: LIDOCAINE PATCH REMOVAL MC ONE ×2 (21:10)
[2025-03-06 06:49] LABS: MCHC 33.1 g/dl (32.3-36.5); MEAN CELL VOLUME 81.2 fl (79.0-92.2); MEAN PLT VOLUME 10.2 fl (9.4-12.4); RDW 18.6 % (12.2-16.4)
[2025-03-06 07:15] LABS: GLUCOSE,RANDOM 135.0 mg/dL (74-106)
[2025-03-06 07:16] LABS: CO2 18.0 mmol/L (21-32)
[2025-03-06 07:18] LABS: CREATININE 3.6 mg/dL (0.55-1.3)
[2025-03-06 07:19] LABS: SGOT/AST 27.0 U/L (15-37); SGPT/ALT 55.0 U/L (13-61)
[2025-03-06 07:20] LABS: TOT PROT 5.9 g/dl (6.4-8.2)
[2025-03-06 07:21] LABS: ALK PHOS 67.0 U/L (45-117)
[2025-03-06 09:27] LABS: URINE APPEARANCE CLEAR; URINE BILIRUBIN NEGATIVE (NEGATIVE); URINE COLOR YELLOW; URINE GLUCOSE (UA) NEGATIVE (NEGATIVE); URINE KETONE NEGATIVE (NEGATIVE); URINE LEUK ESTERASE NEGATIVE (NEGATIVE); URINE NITRITE NEGATIVE (NEGATIVE); URINE PROTEIN TRACE (NEGATIVE); URINE UROBILINOGEN 0.2 mg/dL (0.2-1.0)
[2025-03-06] MEDS: KCL 10 MEQ IVPB 10 MEQ/100 ML INFUS.BAG IVPB SCH (09:31)
[2025-03-06] MEDS: POTASSIUM CHLORIDE ORAL LIQUID 20 MEQ/15 ML PO ONE (12:10)
[2025-03-06] MEDS: ACETAMINOPHEN 500 MG TABLET (FP) PO SCH (12:16)
[2025-03-07 07:00] LABS: MCHC 32.8 g/dl (32.3-36.5); MEAN CELL VOLUME 81.3 fl (79.0-92.2); MEAN PLT VOLUME 10.5 fl (9.4-12.4); RDW 19.2 % (12.2-16.4)
[2025-03-07 07:23] LABS: GLUCOSE,RANDOM 86.0 mg/dL (74-106)
[2025-03-07 07:24] LABS: CO2 18.0 mmol/L (21-32)
[2025-03-07 07:25] LABS: CREATININE 3.4 mg/dL (0.55-1.3); SGPT/ALT 63.0 U/L (13-61)
[2025-03-07 07:26] LABS: SGOT/AST 52.0 U/L (15-37); TOT PROT 5.9 g/dl (6.4-8.2)
[2025-03-07 07:28] LABS: ALK PHOS 67.0 U/L (45-117)
[2025-03-07] MEDS: HYDROCORTISONE 20 MG, HYDROCORTISONE 5 MG PO SCH (10:28)
[2025-03-07] MEDS: ALBUMIN HUMAN 25% 100 ML VIAL IV SCH (14:27)
[2025-03-08 06:42] LABS: MCHC 32.6 g/dl (32.3-36.5); MEAN CELL VOLUME 80.8 fl (79.0-92.2); MEAN PLT VOLUME 11.0 fl (9.4-12.4); RDW 19.2 % (12.2-16.4)
[2025-03-08 07:07] LABS: CO2 20.0 mmol/L (21-32); GLUCOSE,RANDOM 102.0 mg/dL (74-106)
[2025-03-08 07:10] LABS: CREATININE 3.0 mg/dL (0.55-1.3); SGOT/AST 58.0 U/L (15-37); SGPT/ALT 78.0 U/L (13-61)
[2025-03-08 07:12] LABS: TOT PROT 6.2 g/dl (6.4-8.2)
[2025-03-08 07:14] LABS: ALK PHOS 77.0 U/L (45-117)
[2025-03-08] MEDS: POTASSIUM CHLORIDE ORAL LIQUID 20 MEQ/15 ML PO ONE (09:40)
[2025-03-08] MEDS: MAGNESIUM OXIDE 400 MG TABLET (FP) PO ONE (09:41)
[2025-03-08] MEDS: ALBUMIN HUMAN 25% 100 ML VIAL IV SCH (09:42)
[2025-03-09] MEDS: METOPROLOL TARTRATE 25 MG TABLET (FP) PO ONE (00:08)
[2025-03-09 08:50] LABS: ABSOLUTE IMMATURE GRANULOCYTES 0.12 x10^3/uL (0.0-0.031); BASOPHILS # 0.01 x10^3/uL (0.01-0.08); EOSINOPHIL % 5.0 % (0.8-7.0); EOSINOPHILS # 0.55 x10^3/uL (0.04-0.54); MCHC 32.1 g/dl (32.3-36.5); MEAN CELL VOLUME 81.6 fl (79.0-92.2); MEAN PLT VOLUME 10.6 fl (9.4-12.4); MONOCYTE # 1.74 x10^3/uL (0.30-0.82); MONOCYTE % 15.8 % (5.3-12.2); RDW 19.6 % (12.2-16.4)
[2025-03-09 09:19] LABS: CO2 20 mmol/L (21-32); CREATININE 2.7 mg/dL (0.55-1.3); GLUCOSE,RANDOM 83 mg/dL (74-106)
[2025-03-09 09:20] LABS: SGPT/ALT 50 U/L (13-61)
[2025-03-09 09:21] LABS: TOT PROT 5.9 g/dl (6.4-8.2)
[2025-03-09 09:22] LABS: SGOT/AST 25 U/L (15-37)
[2025-03-09 09:23] LABS: ALK PHOS 61 U/L (45-117)
[2025-03-09] MEDS: POTASSIUM CHLORIDE TABS 20 MEQ TABLET.ER (FP) PO ONE ×2 (10:35→13:47)
[2025-03-09] MEDS: POTASSIUM CHLORIDE TABS 20 MEQ TABLET.ER (FP) PO SCH ×2 (10:51→12:05)
[2025-03-09] MEDS: METOPROLOL TARTRATE 25 MG TABLET (FP) PO SCH (11:00)
[2025-03-09] MEDS ORDERED: POTASSIUM CHLORIDE TABS 20 MEQ TABLET.ER (FP) PO ONE ×3 (11:00→14:51)
[2025-03-09] MEDS: dilTIAZem HCL 25 MG/5 ML - 5 ML VIAL IVPUSH ONE ×2 (12:40)
[2025-03-09] MEDS: MAGNESIUM 2GM/50ML STERILE WATER IVPB IVPB ONE (12:41)
[2025-03-09] MEDS: KCL 10 MEQ IVPB 10 MEQ/100 ML INFUS.BAG IVPB SCH (13:33)
[2025-03-09] MEDS: POTASSIUM CHLORIDE ORAL LIQUID 20 MEQ/15 ML PO ONE (13:48)
[2025-03-09] MEDS ORDERED: METOPROLOL TARTRATE 5 MG/5 ML VIAL IVPUSH PRN (15:52)
[2025-03-09 21:11] LABS: MCHC 32.6 g/dl (32.3-36.5); MEAN CELL VOLUME 82.9 fl (79.0-92.2); MEAN PLT VOLUME 10.2 fl (9.4-12.4); RDW 18.3 % (12.2-16.4)
[2025-03-09 21:50] LABS: CO2 19.0 mmol/L (21-32); GLUCOSE,RANDOM 136.0 mg/dL (74-106)
[2025-03-09 21:53] LABS: CREATININE 2.5 mg/dL (0.55-1.3)
[2025-03-09] MEDS ORDERED: POTASSIUM CHLORIDE TABS 20 MEQ TABLET.ER (FP) PO SCH (22:00)
[2025-03-10 07:39] LABS: ABSOLUTE IMMATURE GRANULOCYTES 0.16 x10^3/uL (0.0-0.031); BASOPHILS # 0.02 x10^3/uL (0.01-0.08); EOSINOPHIL % 2.5 % (0.8-7.0); EOSINOPHILS # 0.29 x10^3/uL (0.04-0.54); MCHC 33.5 g/dl (32.3-36.5); MEAN CELL VOLUME 82.0 fl (79.0-92.2); MEAN PLT VOLUME 10.2 fl (9.4-12.4); MONOCYTE # 1.91 x10^3/uL (0.30-0.82); MONOCYTE % 16.2 % (5.3-12.2); RDW 18.3 % (12.2-16.4)
[2025-03-10 08:16] LABS: CO2 21.0 mmol/L (21-32); GLUCOSE,RANDOM 98.0 mg/dL (74-106)
[2025-03-10 08:19] LABS: CREATININE 2.4 mg/dL (0.55-1.3); SGOT/AST 32.0 U/L (15-37); SGPT/ALT 51.0 U/L (13-61)
[2025-03-10 08:20] LABS: TOT PROT 6.1 g/dl (6.4-8.2)
[2025-03-10 08:21] LABS: ALK PHOS 78.0 U/L (45-117)
[2025-03-10] MEDS: MAGNESIUM OXIDE 400 MG TABLET (FP) PO ONE (09:59)
[2025-03-10] MEDS: POTASSIUM CHLORIDE ORAL LIQUID 20 MEQ/15 ML PO ONE ×2 (10:00→10:02)
[2025-03-10] MEDS: MAGNESIUM 2GM/50ML STERILE WATER IVPB IVPB ONE (10:00)
[2025-03-11 07:59] LABS: ABSOLUTE IMMATURE GRANULOCYTES 0.12 x10^3/uL (0.0-0.031); BASOPHILS # 0.01 x10^3/uL (0.01-0.08); EOSINOPHIL % 2.6 % (0.8-7.0); EOSINOPHILS # 0.28 x10^3/uL (0.04-0.54); MCHC 31.7 g/dl (32.3-36.5); MEAN CELL VOLUME 83.3 fl (79.0-92.2); MEAN PLT VOLUME 10.9 fl (9.4-12.4); MONOCYTE # 1.46 x10^3/uL (0.30-0.82); MONOCYTE % 13.4 % (5.3-12.2); RDW 18.7 % (12.2-16.4)
[2025-03-11 08:40] LABS: CO2 21.0 mmol/L (21-32); GLUCOSE,RANDOM 92.0 mg/dL (74-106)
[2025-03-11 08:43] LABS: CREATININE 2.2 mg/dL (0.55-1.3); SGOT/AST 41.0 U/L (15-37); SGPT/ALT 56.0 U/L (13-61)
[2025-03-11 08:44] LABS: TOT PROT 6.3 g/dl (6.4-8.2)
[2025-03-11 08:46] LABS: ALK PHOS 79.0 U/L (45-117)
[2025-03-11] MEDS: POTASSIUM CHLORIDE ORAL LIQUID 20 MEQ/15 ML PO ONE (16:00)
[2025-03-12] MEDS: POTASSIUM CHLORIDE ORAL LIQUID 20 MEQ/15 ML PO ONE (07:26)
[2025-03-12 07:37] LABS: ABSOLUTE IMMATURE GRANULOCYTES 0.13 x10^3/uL (0.0-0.031); BASOPHILS # 0.02 x10^3/uL (0.01-0.08); EOSINOPHIL % 5.8 % (0.8-7.0); EOSINOPHILS # 0.55 x10^3/uL (0.04-0.54); MCHC 31.3 g/dl (32.3-36.5); MEAN CELL VOLUME 84.2 fl (79.0-92.2); MEAN PLT VOLUME 10.9 fl (9.4-12.4); MONOCYTE # 1.16 x10^3/uL (0.30-0.82); MONOCYTE % 12.3 % (5.3-12.2); RDW 18.9 % (12.2-16.4)
[2025-03-12 08:01] LABS: CO2 21.0 mmol/L (21-32)
[2025-03-12 08:02] LABS: GLUCOSE,RANDOM 74.0 mg/dL (74-106)
[2025-03-12 08:04] LABS: SGPT/ALT 69.0 U/L (13-61)
[2025-03-12 08:05] LABS: CREATININE 1.9 mg/dL (0.55-1.3); SGOT/AST 65.0 U/L (15-37)
[2025-03-12 08:06] LABS: TOT PROT 6.3 g/dl (6.4-8.2)
[2025-03-12 08:07] LABS: ALK PHOS 80.0 U/L (45-117)
[2025-03-12] MEDS ORDERED: LIDOCAINE 4% PATCH TP ONE (15:14)
[2025-03-12] MEDS: LIDOCAINE 4% PATCH TP SCH (15:47)
[2025-03-12] MEDS ORDERED: LIDOCAINE PATCH REMOVAL MC SCH ×2 (22:00)
[2025-03-12] MEDS: LIDOCAINE PATCH REMOVAL MC SCH (22:12)
[2025-03-12] MEDS: ACETAMINOPHEN 325 MG TABLET (FP) PO SCH (22:14)
[2025-03-13 08:09] LABS: ABSOLUTE IMMATURE GRANULOCYTES 0.12 x10^3/uL (0.0-0.031); BASOPHILS # 0.03 x10^3/uL (0.01-0.08); EOSINOPHIL % 3.2 % (0.8-7.0); EOSINOPHILS # 0.32 x10^3/uL (0.04-0.54); MCHC 31.1 g/dl (32.3-36.5); MEAN CELL VOLUME 85.4 fl (79.0-92.2); MEAN PLT VOLUME 11.0 fl (9.4-12.4); MONOCYTE # 0.88 x10^3/uL (0.30-0.82); MONOCYTE % 8.7 % (5.3-12.2); RDW 19.2 % (12.2-16.4)
[2025-03-13 08:27] LABS: CO2 22.0 mmol/L (21-32); GLUCOSE,RANDOM 70.0 mg/dL (74-106)
[2025-03-13 08:30] LABS: CREATININE 1.8 mg/dL (0.55-1.3); SGOT/AST 67.0 U/L (15-37); SGPT/ALT 76.0 U/L (13-61)
[2025-03-13 08:32] LABS: TOT PROT 6.4 g/dl (6.4-8.2)
[2025-03-13 08:33] LABS: ALK PHOS 90.0 U/L (45-117)
[2025-03-13] MEDS ORDERED: POTASSIUM CHLORIDE ORAL LIQUID 20 MEQ/15 ML PO ONE (09:15)
[2025-03-13] MEDS: MAGNESIUM SULFATE IN WATER 2 GM/50 ML IVPB IVPB ONE (11:22)
[2025-03-13] MEDS: POTASSIUM CHLORIDE ORAL LIQUID 20 MEQ/15 ML PO ONE (11:55)
[2025-03-13] MEDS ORDERED: LIDOCAINE 4% PATCH TP ONE ×2 (15:14)
[2025-03-14 08:24] LABS: ABSOLUTE IMMATURE GRANULOCYTES 0.15 x10^3/uL (0.0-0.031); BASOPHILS # 0.03 x10^3/uL (0.01-0.08); EOSINOPHIL % 3.6 % (0.8-7.0); EOSINOPHILS # 0.31 x10^3/uL (0.04-0.54); MCHC 30.6 g/dl (32.3-36.5); MEAN CELL VOLUME 85.8 fl (79.0-92.2); MEAN PLT VOLUME 10.9 fl (9.4-12.4); MONOCYTE # 0.86 x10^3/uL (0.30-0.82); MONOCYTE % 10.1 % (5.3-12.2); RDW 19.0 % (12.2-16.4)
[2025-03-14 09:23] LABS: CO2 21.0 mmol/L (21-32); GLUCOSE,RANDOM 66.0 mg/dL (74-106)
[2025-03-14 09:25] LABS: SGOT/AST 63.0 U/L (15-37); SGPT/ALT 81.0 U/L (13-61)
[2025-03-14 09:26] LABS: CREATININE 1.6 mg/dL (0.55-1.3)
[2025-03-14 09:27] LABS: TOT PROT 6.3 g/dl (6.4-8.2)
[2025-03-14 09:28] LABS: ALK PHOS 93.0 U/L (45-117)
[2025-03-14] MEDS: POTASSIUM CHLORIDE TABS 20 MEQ TABLET.ER (FP) PO SCH (09:51)
[2025-03-14] MEDS ORDERED: morphine CARPU-JECT 2 MG/1 ML DISP.SYRIN IVPUSH PRN (10:58)
[2025-03-15 08:09] LABS: MCHC 30.8 g/dl (32.3-36.5); MEAN CELL VOLUME 85.8 fl (79.0-92.2); MEAN PLT VOLUME 11.2 fl (9.4-12.4); RDW 19.4 % (12.2-16.4)
[2025-03-15 08:45] LABS: CO2 22.0 mmol/L (21-32); GLUCOSE,RANDOM 71.0 mg/dL (74-106)
[2025-03-15 08:48] LABS: CREATININE 1.6 mg/dL (0.55-1.3); SGOT/AST 63.0 U/L (15-37); SGPT/ALT 80.0 U/L (13-61)
[2025-03-15 08:49] LABS: TOT PROT 6.5 g/dl (6.4-8.2)
[2025-03-15 08:50] LABS: ALK PHOS 104.0 U/L (45-117)
[2025-03-15] MEDS ORDERED: MAGNESIUM SULF 50% (8.12 MEQ/2 ML-1 GM VIAL) IVPB ONE (09:30)
[2025-03-15] MEDS: MAGNESIUM SULFATE IN WATER 2 GM/50 ML IVPB IVPB ONE (09:45)
[2025-03-15] MEDS: FUROSEMIDE 20 MG TABLET (FP) PO ONE (16:38)
[2025-03-16] MEDS ORDERED: METOPROLOL TARTRATE 25 MG TABLET (FP) PO SCH (07:48)
[2025-03-16 09:30] LABS: CO2 24.0 mmol/L (21-32); GLUCOSE,RANDOM 62.0 mg/dL (74-106)
[2025-03-16 09:31] LABS: SGPT/ALT 70.0 U/L (13-61)
[2025-03-16 09:32] LABS: TOT PROT 6.5 g/dl (6.4-8.2)
[2025-03-16 09:33] LABS: CREATININE 1.5 mg/dL (0.55-1.3); SGOT/AST 46.0 U/L (15-37)
[2025-03-16 09:34] LABS: ALK PHOS 102.0 U/L (45-117)
[2025-03-16] MEDS: FUROSEMIDE 20 MG TABLET (FP) PO ONE (10:39)
[2025-03-16] MEDS: METOPROLOL TARTRATE 25 MG TABLET (FP) PO SCH ×2 (10:40→22:06)
[2025-03-17 08:54] LABS: CO2 28.0 mmol/L (21-32); GLUCOSE,RANDOM 72.0 mg/dL (74-106)
[2025-03-17 08:56] LABS: CREATININE 1.4 mg/dL (0.55-1.3)
[2025-03-17 08:57] LABS: SGOT/AST 32.0 U/L (15-37); SGPT/ALT 57.0 U/L (13-61)
[2025-03-17 08:58] LABS: TOT PROT 6.4 g/dl (6.4-8.2)
[2025-03-17 08:59] LABS: ALK PHOS 111.0 U/L (45-117)
[2025-03-17] MEDS: ACETAMINOPHEN 1000 MG/100 ML BAG IVPB ONE (09:30)
[2025-03-17] MEDS: POTASSIUM CHLORIDE TABS 20 MEQ TABLET.ER (FP) PO SCH (09:33)
[2025-03-17 10:40] VITALS: BP 168/91; PULSE 78; RESP 16; TEMP 97.7
[2025-03-17 15:11] LABS: RENIN ACTIVITY(PRA) 0.233 ng/mL/hr (0.167-5.380)
[2025-03-17] MEDS: MAGNESIUM 1GM/D5W - 1 GM/100 ML IVPB IVPB ONE (15:18)
[2025-03-17] MEDS ORDERED: ACETAMINOPHEN 325 MG TABLET (FP) PO SCH ×2 (22:00)
== END 2025-03-17 18:37 | disposition home or self-care (01) | DRG 871 ==
LOC: JER 10:36 → JERBED 12:38 → J8W 17:55 → JICU 02-09 21:17 → J6S 02-11 20:29 → J2W 02-23 15:07 → J4S 03-03 17:45
PROVIDERS: ADMIT Internal Medicine; ATTEND Internal Medicine
PROC: 30233N1 Transfusion of Nonautologous Red Blood Cells into Peripheral Vein, Percutaneous Approach (ICD-10-PCS; 2025-02-10)
PROC: 0DJ08ZZ Inspection of Upper Intestinal Tract, Via Natural or Artificial Opening Endoscopic (ICD-10-PCS; principal; 2025-02-10 13:15)
DX: A41.4 Sepsis due to anaerobes (principal); G93.41 Metabolic encephalopathy; K26.4 Chronic or unspecified duodenal ulcer with hemorrhage; N17.9 Acute kidney failure, unspecified; E87.1 Hypo-osmolality and hyponatremia; A04.72 Enterocolitis due to Clostridium difficile, not specified as recurrent; E46 Unspecified protein-calorie malnutrition; D62 Acute posthemorrhagic anemia; E27.40 Unspecified adrenocortical insufficiency; I50.42 Chronic combined systolic (congestive) and diastolic (congestive) heart failure; L03.115 Cellulitis of right lower limb; I11.0 Hypertensive heart disease with heart failure; E86.0 Dehydration; N20.0 Calculus of kidney; M06.9 Rheumatoid arthritis, unspecified; E87.5 Hyperkalemia; E78.5 Hyperlipidemia, unspecified; D64.9 Anemia, unspecified; E83.42 Hypomagnesemia; Z68.25 Body mass index [BMI] 25.0-25.9, adult; E87.70 Fluid overload, unspecified; E88.09 Other disorders of plasma-protein metabolism, not elsewhere classified; I48.91 Unspecified atrial fibrillation
CPT/HCPCS: 0241U-QW; 36415; 36430; 36600; 70450-TC; 70551-TC; 71045-TC-FY; 71250-TC; 71260-TC; 72125-TC; 73030-TC-LT-FY; 73030-TC-RT-FY; 73562-TC-RT-FY; 73718-TC-RT; 74018-TC-FY; 74176-TC; 74177-TC; 74181-TC; 76775-TC; 76856-TC; 80048; 80053; 81003; 82024; 82085; 82088; 82140; 82248; 82533; 82550; 82570; 82595; 82728; 82784; 82803; 82962; 83010; 83519; 83520; 83540; 83550; 83605; 83615; 83735; 83880; 84100; 84155; 84165; 84244; 84300; 84443; 84484; 85025; 85027; 85610; 85651; 85730; 86038; 86060; 86140; 86160; 86225; 86235; 86256; 86431; 86618; 86704; 86705; 86803; 86850; 86900; 86901; 86922; 87040; 87086; 87102; 87207; 87210; 87324; 87338; 87340; 87389; 87449; 87493; 87522; 87798; 93005; 93010; 93306-TC; 93970-TC; 93971; 94010; 97116-GP; 97161-GP; 99285-25; G0480; J0289; J0834; J1756; P9058; Q9967